=== PATIENT | female | born 1950 | race Caucasian/White ===

== ENCOUNTER 2016-11-19 08:34 | Inpatient (IN) | payer BC, OTHER ==
--- NOTE | 2016-10-24 10:17 | PAT Medication Instructions ---
Service Date Oct 24, 2016. Current Home Medication List Calcium Carbonate (Tums), 2 TAB PO PRN Cholecalciferol (Vitamin D3), 1 CAP PO QAM Ibuprofen (Advil), 400 MG PO BID PRN for RN Insulin Glargine (Lantus), 38 UNITS SC HS Levothyroxine Sodium (Synthroid), 50 MCG PO QAM Lisinopril (Zestril), 5 MG PO QAM Meclizine Hcl (Meclizine Hcl), 1 TAB PO PRN [Humalog], SC SLIDING SCALE Medication Instructions For Your Scheduled Surgery - Hold the following medications 7-10 days prior to surgery per surgeon instructions: Ibuprofen (Advil), 400 MG PO BID PRN for RN - Hold the following medications the morning of surgery: Humalog SC SLIDING SCALE Lisinopril (Zestril), 5 MG PO QAM Cholecalciferol (Vitamin D3), 1 CAP PO QAM. Calcium Carbonate (Tums), 2 TAB PO PRN - Take the following medications the morning of surgery with a sip of water: Levothyroxine Sodium (Synthroid), 50 MCG PO QAM Meclizine Hcl (Meclizine Hcl), 1 TAB PO PRN (takes occasionally- only take if needed) - Take the following medications as schedule Calcium Carbonate (Tums), 2 TAB PO PRNd the night before surgery: Insulin Glargine (Lantus), 38 UNITS SC HS If you have any questions please call us at [phone] or [phone] ( Jennifer) or [phone]
--- NOTE | 2016-10-24 10:54 | DIAGNOSTIC IMAGING REPORT ---
CHEST PREADMISSION(PA/LAT) CLINICAL HISTORY: Preoperative chest COMPARISON STUDY: No previous studies for comparison. FINDINGS: The cardiac and mediastinal contours are normal. There is no evidence of focal pulmonary consolidation. There is no evidence of failure. No pleural effusions are visualized.[There is minor linear scarring/atelectasis within the lingula. IMPRESSION: No active disease in the chest. Electronically signed by: Brenden Montez M.D. 10/24/2016 10:53 AM Dictated Date/Time: 10/24/2016 10:52 AM
[2016-10-24 11:18] LABS: URINE APPEARANCE CLEAR (CLEAR); URINE BILIRUBIN NEG (NEG); URINE COLOR YELLOW; URINE EPITHELIAL CELL AUTO 20-30 /lpf (0-5); URINE NITRITE NEG (NEG); URINE SPECIFIC GRAVITY 1.029 (1.000-1.030); UROBILINOGEN NEG (NEG)
[2016-10-24 11:20] LABS: MANUAL MICROSCOPIC REQUIRED? NO; REVIEW REQ? NO
[2016-10-24 11:22] LABS: BASO % 0.2 %; BASO ABS # 0.01 K/uL (0-0.2); COMPLETE YES; EOS % 2.7 %; HEMATOCRIT 39.3 % (37-47); IG% 0.2 %; LYMPH % 41.7 %; LYMPH ABS # 1.88 K/uL (1.2-3.4); MEAN CORPUSCULAR HGB CONC 34.1 g/dl (32-36); MEAN PLATELET VOLUME 9.9 fL (7.4-10.4); MONO % 5.3 %; NEUT % 49.9 %; PLATELET COUNT 189 K/uL (130-400); RED BLOOD COUNT 4.32 M/uL (4.2-5.4); WHITE BLOOD COUNT 4.51 K/uL (4.8-10.8)
[2016-10-24 12:05] LABS: BUN/CREATININE RATIO 23.9 (10-20); CALCIUM 8.6 mg/dl (8.5-10.1); CREATININE 0.74 mg/dl (0.60-1.20); POTASSIUM 3.9 mmol/L (3.5-5.1)
--- NOTE | 2016-11-15 09:13 | HISTORY & PHYSICAL EXAMINATION ---
DATE OF ADMISSION: 11/19/2016 HISTORY OF PRESENT ILLNESS: The patient presents to our office with a complaint of pain across the lower back, down the right leg, involving the buttock and thigh to the level of the knee. She states it is constant and worsening. She attempted physical therapy which was ineffective. She has trialed injections in the past without any long-term improvement. Denies bowel or bladder changes. Denies any numbness or paresthesias. PAST MEDICAL HISTORY: Significant for arthritis, spinal stenosis, thyroid disease, Lyme's disease, motion sickness, diabetes and fibromyalgia. PAST SURGICAL HISTORY: Significant for right knee surgery in 2005, right carpal tunnel release in 2007, back surgery in 2010. ALLERGIES: CAFFEINE CAUSES HEART PALPITATIONS. CURRENT MEDICATIONS: Include: 1. Levothyroxine 50 mcg a day. 2. Lisinopril 5 mg a day. 3. Humalog insulin 2 units per 15 carbs. 4. Lantus insulin 38 units daily. SOCIAL HISTORY: She is . Alcohol use is none. Tobacco use is none. FAMILY HISTORY: Significant for arthritis, cardiovascular disease, cancer, diabetes, hypertension, high cholesterol, and thyroid disease. REVIEW OF SYSTEMS: Significant for difficulty walking, ringing in ears, vertigo, muscle weakness, heartburn, heat intolerance, frequent urination. PHYSICAL EXAMINATION: VITAL SIGNS: She is 5-foot tall, 154 pounds. HEENT: Speech appropriate. CARDIOPULMONARY: No gross abnormalities. ABDOMEN: Soft, nontender. GENITOURINARY: Deferred. NEUROLOGIC: Cranial nerves II-XII grossly intact. MUSCULOSKELETAL: She moves slowly around the room. Strength is intact in bilateral lower extremities. No ankle clonus. Negative Babinski. ASSESSMENT: Severe spinal stenosis and spondylolisthesis of L3-L4. PLAN: At this point in time, we have reviewed surgical intervention as she has failed conservative treatment. Surgery would require lumbar decompression with instrumented fusion of L3-L4. Risks, benefits, pros, cons, and alternatives were outlined in detail. She would like to proceed with the above-mentioned surgical planning.
[2016-11-19] VITALS (8 sets, daily range): BP systolic 105–161; BP diastolic 58–75; PULSE 65–79; TEMP 36.4–36.8; O2SAT 97–100
[~2016-11-19] VITALS: Ht 154.9 cm; Wt 71.6 kg
--- NOTE | 2016-11-19 07:22 | History & Physical Bridge Note ---
H&P Re-Evaluation Bridge Note: I have examined the patient, reviewed the History & Physical and in the interval since the performance of the History & Physical I have noted the following changes of clinical significance: No changes noted
[~2016-11-19 08:34] MED LIST: ATROPINE SULFATE 0.1 MG/ML 5ML SYR IV PRN; CALC500C3 PO; CEFAZOLIN 1000MG/55 ML D5W IV SCH; CHOL2000 PO; EpHEDrine SULFATE INJ 50 MG/ML AMP IV PRN; FENTANYL CITRATE INJ 50 MCG/1 ML 2 ML VIAL IV PRN; HUMALOG SC; HYDROmorphone INJ 1 MG/ML SYR IV PRN; IBUP-1277 PO; INSDGI SC; LACTATED RINGER'S 1000ML 1,000 ML IV SCH; LEVO50TA PO; LISI-729 PO; MECL1TAB42 PO; ONDANSETRON INJ 2 MG/ML 2 ML VIAL IV PRN
[2016-11-19] MEDS ORDERED: FENTANYL CITRATE INJ 50 MCG/1 ML 2 ML VIAL ONE ×2 (09:29→10:32)
[2016-11-19] MEDS ORDERED: MIDAZOLAM HCL 1 MG/ML 2ML VIAL ONE (09:29)
[2016-11-19] MEDS ORDERED: SODIUM CHLORIDE 0.9% PF 50 ML VIAL ONE (09:55)
[2016-11-19] MEDS ORDERED: BUPIVACAINE/EPINEPHRINE 0.5% MPF 1:200,000 30 ML VIAL ONE (09:55)
[2016-11-19] MEDS ORDERED: BACITRACIN 50000 UNIT VIAL ONE (09:55)
[2016-11-19] MEDS ORDERED: HYDROmorphone INJ 2 MG/ML SYR/VIAL ONE ×2 (10:32→11:28)
[2016-11-19] MEDS ORDERED: LIDOCAINE HCL 2% 2 ML VIAL (20MG/ML) ONE (11:21)
[2016-11-19] MEDS ORDERED: ROCURONIUM BROMIDE 10 MG/ML 5 ML VIAL ONE (11:21)
[2016-11-19] MEDS ORDERED: DEXAMETHASONE SOD INJ 4 MG/ML VIAL ONE (11:21)
[2016-11-19] MEDS ORDERED: PROPOFOL IV EMULSION 10 MG/ML 20 ML VIAL IV ONE (11:21)
[2016-11-19] MEDS ORDERED: SODIUM CHLORIDE 0.9% 1000ML 1,000 ML IV SCH (11:26)
--- NOTE | 2016-11-19 11:26 | [facility] Operative Report ---
Operative Report Operative Date Nov 19, 2016. Pre-Operative Diagnosis severe spinal stenosis and spondylothesis L3-[address] Alan Murillo Family Support Specialist Surgeon(s) Rebekah Carl PA-C Estimated Blood Loss 250 ml Findings stenosis Specimens none per surgeon Dr. Javier Murillo I attest to the content of the Intraoperative Record and any orders documented therein. Any exceptions are noted below.
[2016-11-19] MEDS ORDERED: FLOSEAL HEMOSTATIC MATRIX 10ML TOP ONE (11:27)
[2016-11-19] MEDS ORDERED: DO NOT ADMINISTER FLU VACCINE PRN ×3 (11:30)
[2016-11-19] MEDS ORDERED: CALCIUM CARBONATE 500 MG CHEWABLE PO PRN (11:30)
[2016-11-19] MEDS ORDERED: hydrOXYzine HCL 25 MG TAB PO PRN (11:30)
[2016-11-19] MEDS ORDERED: SOD PHOSPHATE/SOD BIPHOSPHATE ENEMA 132 ML BTL PR PRN (11:30)
[2016-11-19] MEDS ORDERED: PROMETHAZINE HCL INJ 12.5 MG in SODIUM CHLORIDE 0.9% 50ML 50 ML IV PRN (11:30)
[2016-11-19] MEDS ORDERED: BISACODYL 10 MG SUPP PR PRN (11:30)
[2016-11-19] MEDS ORDERED: NALOXONE HCL 0.4 MG/1 ML VIAL/CARP IV PRN ×2 (11:30)
[2016-11-19] MEDS ORDERED: DO NOT ADMINISTER PNEUMOCOCCAL VACCINE PRN ×2 (11:30)
[2016-11-19] MEDS ORDERED: ALUMINUM/MAGNESIUM SUSP 30 ML UDC PO PRN (11:30)
[2016-11-19] MEDS ORDERED: LORAZEPAM 0.5 MG TAB PO PRN (11:30)
[2016-11-19] MEDS ORDERED: LORAZEPAM INJ 0.5 MG in SYRINGE 0.75 ML IV PRN (11:30)
[2016-11-19] MEDS ORDERED: MAGNESIUM HYDROXIDE SUSP 30 ML UDC PO PRN (11:30)
[2016-11-19] MEDS ORDERED: ACETAMINOPHEN IV 100 ML IV PRN (11:30)
[2016-11-19] MEDS ORDERED: METOCLOPRAMIDE HCL INJ 5 MG/ML 2 ML VIAL IV PRN (11:30)
[2016-11-19] MEDS ORDERED: FAMOTIDINE 20 MG TAB PO PRN (11:30)
[2016-11-19] MEDS ORDERED: ONDANSETRON INJ 2 MG/ML 2 ML VIAL ONE (11:31)
[2016-11-19] MEDS ORDERED: ESMOLOL HCL 10 MG/ML 10 ML VIAL ONE (11:31)
[2016-11-19] MEDS ORDERED: GLYCOPYRROLATE INJ 0.2 MG/ML VIAL ONE (11:31)
[2016-11-19] MEDS ORDERED: KETOROLAC TROMETHAMINE 30 MG/ML VIAL ONE (11:32)
[2016-11-19] MEDS ORDERED: NEOSTIGMINE METHYLSULFATE 1 MG/ML 10ML VIAL ONE (11:32)
--- NOTE | 2016-11-19 11:43 | DIAGNOSTIC IMAGING REPORT ---
LUMBAR SPINE, INTRAOPERATIVE FLUOROSCOPY HISTORY: L3-L5 decompression and fusion. FLUOROSCOPY TIME: 8 seconds. FINDINGS: Intraoperative fluoroscopy was provided for the lumbar spine. 2 fluoroscopic spot images were obtained. There is fusion hardware seen from L3 through L5. The hardware appears intact. IMPRESSION: Fluoroscopy provided for a L3-L5 decompression and fusion. Electronically signed by: Stanley Castillo M.D. 11/19/2016 11:42 AM Dictated Date/Time: 11/19/2016 11:42 AM
[2016-11-19] MEDS ORDERED: HYDROmorphone HCL 0.5MG/ML 50 ML CASSETTE ONE (11:45)
--- NOTE | 2016-11-19 12:17 | Anesthesiology Progress Note ---
Anesthesia Post Op Note Date & Time Nov 19, 2016 at 12:17 Vital Signs Pain Intensity: 5 Vital Signs Past 12 Hours Date Time Temp Pulse Resp B/P Pulse Ox O2 Delivery O2 Flow Rate FiO2 11/19/16 12:10 77 16 137/74 100 Nasal Cannula 3 11/19/16 12:00 82 16 143/84 100 Mask 10 11/19/16 11:50 82 16 145/72 100 Mask 10 11/19/16 11:44 36.6 83 16 169/80 96 Mask 10 11/19/16 08:56 36.5 73 20 161/75 98 Room Air Notes Mental Status: alert / awake / arousable, participated in evaluation Pt Amnestic to Procedure: Yes Nausea / Vomiting: adequately controlled Pain: adequately controlled Airway Patency, RR, SpO2: stable & adequate BP & HR: stable & adequate Hydration State: stable & adequate Anesthetic Complications: no major complications apparent
[2016-11-19] MEDS ORDERED: PHARMACY GLYCEMIC MGMT CONSULT PRN (12:31)
--- NOTE | 2016-11-19 12:49 | Pharmacy Progress Note ---
Glycemic Control Intl Consult Date of Service Nov 19, 2016. Scope Glycemic Pharmacist consulted by Dr Murillo on 11/19/16 for glycemic control and to write orders per [facility] inpatient glycemic control protocol Objective Weight (Kilograms): 71.60 Accuchecks BSG (last 24hrs): Test 11/19/16 08:56 11/19/16 11:57 Bedside Glucose 169 mg/dl (70-90) 227 mg/dl (70-90) Recent Pertinent Medications Outpatient Anti-diabetic Regimen: * Lantus 35 u HS * Humalog SS (2 unit per 15 g CHO per MD) * A1c unknown Risk Factors for Insulin Resistance: * Steroids * Recent Surgery * Diet Assessment & Plan ASSESSMENT: * 66 yo diabetic M admitted with spinal stenosis, POD#0 * A1c unknown- obtain tomorrow with AM labs to assess outpatient glycemic control * Per medication records, patient on basal/bolus regimen at home * My plan will be to split Lantus BID for ease of titration * Initiate 18 units as soon as patient admitted then continue BID dosing tonight * Initiate wt based Novolog, stress of 3 due to steroids * Add 00,04 checks for likely steroid-induced hyperglycemia * ADA & AACE recommend a goal blood sugar range 140-180 mg/dl for the majority of critically ill & non-critically ill patients. However, more stringent targets may be selected in individual cases. For optimal wound healing, tighten goal range to 110-140 mg/dL. PLAN FOR INPATIENT GLYCEMIC CONTROL: * Basal insulin with LANTUS 18 units SQ BID, first dose now * Correctional Insulin with NOVOLOG per scale ACHS + 00,04 checks * Goal Range: Low 110 mg/dL - High 140 mg/dL * Correction Factor: 25 mg/dL/unit * Nutritional / Prandial insulin per carb ratio of 1 unit per 8 grams CHO consumed * Add A1c to AM labs * Please note that the plan above was derived based on current level of insulin resistance and hospital stress. These recommendations are appropriate for inpatient admission only. Plan of care upon discharge will need to be reassessed to avoid potential outpatient hypo/hyperglycemia. Thank you.
[2016-11-19] MEDS ORDERED: INSULIN GLARGINE SOLOSTAR 100 UNITS/ML 3 ML PEN SC ONE (13:00)
[2016-11-19] MEDS ORDERED: GLUCOSE 40% GEL 15 GM TUBE PO PRN (13:00)
[2016-11-19] MEDS ORDERED: GLUCOSE 10 TABS/TUBE PO PRN (13:00)
[2016-11-19] MEDS ORDERED: GLUCAGON FOR INJ 1 MG VIAL SQ PRN (13:00)
[2016-11-19] MEDS ORDERED: DEXTROSE 50% 50 ML SYR IV PRN (13:00)
--- NOTE | 2016-11-19 13:33 | [facility] Post Operative Brief Note ---
Immediate Operative Summary Operative Date Nov 19, 2016. Pre-Operative Diagnosis severe spinal stenosis and spondylothesis L3-4 Post-Operative Diagnosis severe spinal stenosis and spondylothesis L3-4 Procedure(s) Performed L3-L4 Decompression, posterior instrumentation, posterolateral fusion, application of interbody cage, use of bone morphogenetic protein and Silvana allograft Surgeon Dr. Alan Murillo Subpoena Server Surgeon(s) Rebekah Carl PA-C Estimated Blood Loss 250 ml Findings stenosis/hnp Specimens none per surgeon Dr. Javier Murillo
[2016-11-19] MEDS: INSULIN ASPART 100 UNITS/ML 3 ML PEN SC SCH ×3 (13:46→21:18)
[2016-11-19] MEDS: LACTATED RINGER'S 1000ML 1,000 ML IV SCH ×2 (13:48→18:21)
--- NOTE | 2016-11-19 14:40 | OPERATIVE REPORT ---
DATE OF OPERATION: 11/19/2016 PREOPERATIVE DIAGNOSIS: Spinal stenosis, L3-L4. POSTOPERATIVE DIAGNOSIS: Same. PROCEDURES PERFORMED: 1. Lumbar decompression, medial facetectomy, and foraminotomy, L3-L4. 2. Posterior spinal fusion, L3-L4. 3. Placement of posterior instrumentation using Orthros rods and screws, L3-L4. 4. Interbody fusion, L3-L4. 5. Placement of PEEK cage 12 x 22 mm at L3-L4. 6. Placement of locally harvested morselized autograft in the posterior gutters. 7. Placement of Infuse collagen sponge combined with Mastergraft in the posterior gutters and Silvana bone graft in the interbody space. SURGEON: Dr. Alan Murillo. PERINATAL INSTRUCTOR: Rebekah Carl PA-C. Due to the complex nature of the procedure, the entire surgery was performed with the behavioral health assistant of Rebekah Carl PA-C. The assistant education director, under direct supervision, was involved in the actual performance of all aspects of the surgical procedure including hemostasis, tissue retraction and incision, instrument management, patient positioning, and wound closure. ANESTHESIA: General. DISPOSITION: The patient awakened and taken to PACU in stable condition. HISTORY OF PATIENT'S PROBLEMS: This is a 66-year-old female that presents with above-mentioned diagnosis. After failing an extensive course of nonoperative care, she elected to undergo the above-mentioned procedures. Risks, benefits, pros, cons, and alternatives were outlined in detail preoperatively. DESCRIPTION OF PROCEDURE: The patient was met with preoperatively, case discussed and all questions were addressed. At that point, the patient was taken back to operative suite and after undergoing successful general intubation by the department of anesthesia, she was placed in prone position on the Chris table atop Colin frame. All bony prominences were well padded and the eyes were inspected to ensure there was no external pressure placed upon them. At this point, lumbar spine was prepped and draped in the normal sterile fashion. Sharp dissection with the assistance of Bovie cautery was performed down to and exposing the lamina and transverse processes of L3-L4. From a caudal to cephalad fashion, a complete laminectomy of L3 was performed addressing severe central lateral recess and foraminal disease. After this was complete, pedicle screws were then placed in L3 and L4 bilaterally with assistance of fluoroscopy and appropriate size parvin provisionally placed. Through a transforaminal approach on the right, a complete diskectomy of L3-L4 was performed, endplates curetted to subcortical bleeding bone and a 12 x 22 mm PEEK cage filled with Silvana bone grafting tapped into position. Rods were then compressed, locked into final position bilaterally and transverse processes of L3 and L4 burred to subcortical bleeding bone. Infuse collagen sponge combined with Mastergraft and locally harvested morselized autograft was placed in the posterior gutters. A 7 flat JIMBO drain was inserted. Incision was closed with 1-0 Vicryl in the fascia, 2-0 Vicryl subcutaneously, and 4-0 Monocryl for final skin closure. Steri-Strips and sterile dressing placed. The patient was awakened and taken to PACU in stable condition. I attest to the content of the Intraoperative Record and any orders documented therein. Any exceptio ns are noted below.
[2016-11-19] MEDS: HYDROmorphone HCL 0.5MG/ML 50 ML CASSETTE IV PRN ×2 (15:04→23:01)
[2016-11-19] MEDS ORDERED: RXC5 PO (16:43)
--- NOTE | 2016-11-19 16:43 | Discharge Instructions ---
Discharge Instructions Date of Service Nov 19, 2016. Admission Reason for Admission: Spinal Stenosis Discharge Discharge Diagnosis / Problem: stenosis Discharge Goals Goal(s): Improve function Activity Recommendations Activity Limitations: per Instructions/Follow-up section . Instructions / Follow-Up Instructions / Follow-Up ACTIVITY RECOMMENDATIONS: SELF CARE INSTRUCTIONS AFTER THORACIC/LUMBAR FUSIONS 1. You may walk to your tolerance. It is good exercise for your legs and back. Expect some back and intermittent leg aches and pains. 2. You may perform "counter-top" level activities (make a sandwich, lizabeth with a project, etc.). 3. No bending or lifting of more than 10 pounds or back twisting of any nature (roll like a log when turning in bed). 4. You may ride in a car for 20-30 minutes at a time. No driving until after your first visit with your doctor. 5. Frequent changes of position and restricting sitting to 30 minutes at a time will help limit the amount of back spasms and stiffness you may experience. 6. You may discontinue the use of ambulatory aids (cane, crutches, etc.) once your strength and confidence allow. 7. You may equipment inspector the shower and let water strike your incision when you arrive home at least once daily. Do not take a tub bath, sit in a hot tub or go into a swimming pool until after your first recheck in the office. SPECIAL CARE INSTRUCTIONS: VERY IMPORTANT TO READ AND REVIEW A. Your surgical incision has been closed with a cosmetic suture under the skin that will dissolve in about 6 weeks. In 14 days, you can use a pair of clean scissors and cut the suture that is left outside of the skin at the ends of your incision. 1. The small skin tapes can be removed 7 days after surgery if they have not fallen off by that point. 2. You may keep the wound open to air as much as possible to promote healing after post-op day number 5 unless told otherwise by your doctor. 3. If you think the wound looks like it is becoming infected (redness or worsening drainage) and/or you are experiencing fever, chill or worsening back pain and muscle spasms, contact the office so that we may evaluate you as soon as possible. B. Complications are uncommon, but please contact us if you have any signs or symptoms of: 1. wound infection (fever higher than 102.5 degrees F, redness, separation of wound, drainage, or increasing pain from the incision) 2. blood clots in legs (pain, swelling, redness and warmth in legs) 3. urinary tract infection (fever higher than 102.5 degrees F, burning upon urination or increased frequency of urination) 4. nerve problems (inability to walk on your toes or heels, numbness, loss of bowel or bladder control) 5. any other symptoms that concern you C. Please call the office at if you have any concerns or questions about your operation or recovery. D. No smoking! Smoking drastically decreases the chance of a solid fusion. E. Do not take any anti-inflammatory medications (Indocin, Advil, Motrin, Aspirin, Naprosyn, etc.) as these may inhibit the chance of a solid fusion. Tylenol is okay to take for pain. MANAGING PAIN AFTER SPINAL SURGERY 1. Narcotic medication is intended for short-term use and will be provided for surgical pain. Surgical pain usually lasts for a period of 4-6 weeks. Narcotic medication includes Percocet, Vicodin, Darvocet, Tylenol #3 or Lortab. 2. Longer-term pain is more appropriately treated with non-narcotic medication such as Tylenol ES. 3. Muscle spasm is not appropriately treated with narcotics. Muscle relaxers such as Soma, Flexeril or Skelaxin can be used along with Tylenol ES. 4. Remember that we all live with some "aches and pains". This is not unusual or uncommon after an injury or as we get older. a. Back pain is expected and may include muscle spasms for 4 to 6 weeks after surgery. The pain should gradually improve. If the pain worsens for no apparent reason, please contact the office. b. Intermittent leg pain may also be experienced and should not be concerned about unless it worsens for no apparent reason. If so, please contact the office. 5. We will provide appropriate medication within the normal guidelines of their prescribed use. We will also be very cautious and aware of potential abuse and extended duration of patients' medication needs. a. Pain medications are for your comfort and to assist with sleep and rest so that the tissue can heal. They are not provided in order to return to normal activity and should not be used through the day. To do so or worsening pain at night can result from ongoing tissue damage and development of tolerance to the prescribed medicine. 6. Please allow 2-3 days to process refills. Prescriptions will not be mailed but must be picked up at the office. FOLLOW UP VISIT: Keep your scheduled follow-up appointment. Any questions, please call the office at . Current Hospital Diet Patient's current hospital diet: Diabetes Type 2 Diet Discharge Diet Recommended Diet: Regular Diet Procedures Procedures Performed: L3-L4 Decompression, posterior instrumentation, posterolateral fusion, application of interbody cage, use of bone morphogenetic protein and Silvana allograft Pending Studies Studies pending at discharge: no Medical Emergencies . Who to Call and When: Medical Emergencies: If at any time you feel your situation is an emergency, please call 911 immediately. . Non-Emergent Contact Non-Emergency issues call your: Primary Care Provider . "Provider Documentation" section prepared by Alan Murillo. VTE Core Measure Inpt VTE Proph given/why not?: Stefani Monsalve, JACQUELINE's
[2016-11-19] MEDS: CEFAZOLIN IV 1,000 MG in DEXTROSE 5% 50ML 50 ML IV SCH (18:21)
[2016-11-19] MEDS: DEXAMETHASONE INJ 6 MG in SYRINGE 0 ML IV SCH (18:35)
[2016-11-19] MEDS ORDERED: NURSING VERBAL MED ORDER ONE (19:30)
[2016-11-19] MEDS ORDERED: MECLIZINE HCL 25 MG TAB PO PRN (19:45)
[2016-11-19] MEDS ORDERED: INSULIN GLARGINE SOLOSTAR 100 UNITS/ML 3 ML PEN SC SCH (21:00)
[2016-11-19] MEDS: DOCUSATE SODIUM/SENNA 50/8.6MG TAB PO SCH (21:15)
[2016-11-20] MEDS: INSULIN ASPART 100 UNITS/ML 3 ML PEN SC SCH ×7 (00:04→23:50)
[2016-11-20] MEDS: LACTATED RINGER'S 1000ML 1,000 ML IV SCH ×2 (00:05→07:26)
[2016-11-20] MEDS: CEFAZOLIN IV 1,000 MG in DEXTROSE 5% 50ML 50 ML IV SCH (01:58)
[2016-11-20] MEDS: DEXAMETHASONE INJ 6 MG in SYRINGE 0 ML IV SCH ×2 (01:58→10:59)
[2016-11-20 03:45] VITALS: BP 122/72; PULSE 81; TEMP 36.5; O2SAT 98
[2016-11-20] MEDS ORDERED: HYDROmorphone INJ 1 MG/ML SYR IV PRN (06:00)
[2016-11-20] MEDS ORDERED: DC PCA SCH (06:00)
[2016-11-20] MEDS ORDERED: HYDROmorphone INJ 0.5 MG/0.5 ML SYR IV PRN (06:00)
[2016-11-20 06:10] VITALS: O2SAT 97
[2016-11-20] MEDS: LEVOTHYROXINE 50 MCG TAB PO SCH (06:13)
[2016-11-20 06:33] LABS: COMPLETE YES; HEMATOCRIT 33.1 % (37-47); IG% 0.2 %; LYMPH % 8.7 %; LYMPH ABS # 0.87 K/uL (1.2-3.4); MEAN CORPUSCULAR HEMOGLOBIN 31.7 pg (25-34); MEAN CORPUSCULAR HGB CONC 35.6 g/dl (32-36); MEAN PLATELET VOLUME 9.4 fL (7.4-10.4); MONO % 1.5 %; NEUT % 89.6 %; PLATELET COUNT 188 K/uL (130-400); RED BLOOD COUNT 3.72 M/uL (4.2-5.4); WHITE BLOOD COUNT 9.96 K/uL (4.8-10.8)
[2016-11-20 07:03] LABS: BUN/CREATININE RATIO 20.8 (10-20); CALCIUM 8.3 mg/dl (8.5-10.1); CREATININE 0.86 mg/dl (0.60-1.20)
[2016-11-20 07:04] VITALS: BP 134/60; PULSE 72; TEMP 36.5; O2SAT 96
--- NOTE | 2016-11-20 07:52 | Anesthesiology Progress Note ---
Anesthesia Post Op Note Date & Time Nov 20, 2016 at 07:52 Vital Signs Pain Intensity: 5.0 Vital Signs Past 12 Hours Date Time Temp Pulse Resp B/P Pulse Ox O2 Delivery O2 Flow Rate FiO2 11/20/16 07:38 Room Air 11/20/16 07:04 36.5 72 16 134/60 96 Room Air 11/20/16 06:10 97 Room Air 11/20/16 03:45 36.5 81 16 122/72 98 Nasal Cannula 2.0 11/19/16 23:30 36.4 72 16 138/75 97 Nasal Cannula 2.0 11/19/16 23:30 Nasal Cannula 2.0 Notes Mental Status: alert / awake / arousable, participated in evaluation Pt Amnestic to Procedure: Yes Nausea / Vomiting: adequately controlled Pain: adequately controlled Airway Patency, RR, SpO2: stable & adequate BP & HR: stable & adequate Hydration State: stable & adequate Anesthetic Complications: no major complications apparent OOB to bathroom
[2016-11-20] MEDS ORDERED: INSULIN GLARGINE SOLOSTAR 100 UNITS/ML 3 ML PEN SC SCH ×2 (08:00→21:00)
[2016-11-20] MEDS: LISINOPRIL 5 MG TAB PO SCH (08:45)
[2016-11-20] MEDS ORDERED: NURSING VERBAL MED ORDER ONE ×3 (08:45→09:15)
[2016-11-20] MEDS: OXYCODONE HCL IR 5 MG TAB (IMMEDIATE RELEASE) PO PRN ×3 (08:59→19:47)
[2016-11-20 09:06] LABS: ESTIMATED AVERAGE GLUCOSE 160 mg/dl; HA1C FLAG Normal (Normal)
--- NOTE | 2016-11-20 09:12 | Pharmacy Progress Note ---
Glycemic Control: Progress Nt Date of Service Nov 20, 2016. Scope Glycemic Pharmacist consulted by Dr Murillo on 11/19/16 for glycemic control and to write orders per [facility] inpatient glycemic control protocol. Objective Accuchecks BSG (last 24hrs): Test 11/19/16 11:57 11/19/16 16:50 11/19/16 21:03 11/20/16 00:01 Bedside Glucose 227 mg/dl (70-90) 244 mg/dl (70-90) 256 mg/dl (70-90) 238 mg/dl (70-90) Test 11/20/16 04:04 11/20/16 06:15 11/20/16 08:04 Bedside Glucose 242 mg/dl (70-90) 222 mg/dl (70-90) Random Glucose 209 mg/dl (70-99) Laboratory Data (last 24hrs) Test 11/20/16 06:15 Anion Gap 6.0 mmol/L BUN/Creatinine Ratio 20.8 Blood Urea Nitrogen 18 mg/dl Creatinine 0.86 mg/dl Potassium Level 4.0 mmol/L Sodium Level 141 mmol/L White Blood Count 9.96 K/uL Red Blood Count 3.72 M/uL Hemoglobin 11.8 g/dL Hematocrit 33.1 % Mean Corpuscular Volume 89.0 fL Mean Corpuscular Hemoglobin 31.7 pg Mean Corpuscular Hemoglobin Concent 35.6 g/dl Platelet Count 188 K/uL Mean Platelet Volume 9.4 fL Neutrophils (%) (Auto) 89.6 % Lymphocytes (%) (Auto) 8.7 % Monocytes (%) (Auto) 1.5 % Eosinophils (%) (Auto) 0.0 % Basophils (%) (Auto) 0.0 % Neutrophils # (Auto) 8.92 K/uL Lymphocytes # (Auto) 0.87 K/uL Monocytes # (Auto) 0.15 K/uL Eosinophils # (Auto) 0.00 K/uL Basophils # (Auto) 0.00 K/uL HbA1c: Item Value Date Time Hemoglobin A1c 7.2 % H 11/20/16 0615 Estimated Average Glucose 160 mg/dl 11/20/16 0615 Recent Pertinent Medications Outpatient Anti-diabetic Regimen: * Lantus 35 u HS * Humalog SS (2 unit per 15 g CHO per MD) Risk Factors for Insulin Resistance: * Steroids * Recent Surgery * Diet Assessment & Plan ASSESSMENT: 11/19/16 * 66 yo diabetic M admitted with spinal stenosis, POD#0 * A1c unknown- obtain tomorrow with AM labs to assess outpatient glycemic control * Per medication records, patient on basal/bolus regimen at home * My plan will be to split Lantus BID for ease of titration * Initiate 18 units as soon as patient admitted then continue BID dosing tonight * Initiate wt based Novolog, stress of 3 due to steroids * Add 00,04 checks for likely steroid-induced hyperglycemia * ADA & AACE recommend a goal blood sugar range 140-180 mg/dl for the majority of critically ill & non-critically ill patients. However, more stringent targets may be selected in individual cases. For optimal wound healing, tighten goal range to 110-140 mg/dL. 11/20/16 * A1c 7.2% reveals adequate glycemic control as outpatient, given age and comorbidities * BSGs elevated over the past 24 hours due to steroid-induced hyperglycemia * Last dose of dexamethasone 6 mg IV @1000 this AM * Tighten Novolog with breakfast as BSGs remain >200 mg/dL * Consider loosening back once effects of steroids dissipate (likely tomorrow) * Remove additional accuchek as steroids discontinued * Start to transition patient back to Lantus HS dosing as discharge is likely in 24-48 hours * A total of Lantus 36 units given yesterday * Give Lantus 10 units X 1 this AM * Initiate Lantus 30 units HS tonight (for a total of 40 units basal) PLAN FOR INPATIENT GLYCEMIC CONTROL: * Basal insulin with LANTUS 10 units X 1 this AM + 30 units HS * Correctional Insulin with NOVOLOG per scale ACHS * Goal Range: Low 110 mg/dL - High 140 mg/dL * Correction Factor: 20 mg/dL/unit * Nutritional / Prandial insulin per carb ratio of 1 unit per 7 grams CHO consumed * Add A1c to D/C instructions * Please note that the plan above was derived based on current level of insulin resistance and hospital stress. These recommendations are appropriate for inpatient admission only. Plan of care upon discharge will need to be reassessed to avoid potential outpatient hypo/hyperglycemia. Thank you.
[2016-11-20 11:53] VITALS: BP 114/63; PULSE 75; TEMP 36.6; O2SAT 96
--- NOTE | 2016-11-20 12:49 | PROGRESS NOTE ---
DATE: 11/20/2016 DATE: 11/20/2016. SUBJECTIVE: Postop day 1. Back pain controlled. Leg pain improving. Vital signs stable. T-max 36.6. JIMBO drained 80 mL. Hematocrit this a.m. is 33.1. OBJECTIVE: On exam she has good strength to testing. Appears relatively comfortable. ASSESSMENT: Status post lumbar decompression and fusion. PLAN: At this time, will continue physical therapy, consider consultation with OT for possible rehab placement versus home health.
[2016-11-20 15:25] VITALS: BP 151/66; PULSE 88; TEMP 36.8; O2SAT 97
[2016-11-20] MEDS ORDERED: INSULIN GLARGINE SOLOSTAR 100 UNITS/ML 3 ML PEN SC ONE (21:15)
[2016-11-20] MEDS: DOCUSATE SODIUM/SENNA 50/8.6MG TAB PO SCH (21:16)
[2016-11-20] MEDS ORDERED: INSULIN REGULAR 4 UNITS in SYRINGE 3.96 ML IV SCH (21:30)
[2016-11-20 23:40] VITALS: BP 108/61; PULSE 78; TEMP 36.7; O2SAT 97
[2016-11-21] MEDS: OXYCODONE HCL IR 5 MG TAB (IMMEDIATE RELEASE) PO PRN ×5 (03:01→21:10)
[2016-11-21] MEDS: INSULIN ASPART 100 UNITS/ML 3 ML PEN SC SCH ×5 (03:58→21:01)
[2016-11-21] MEDS: POLYETHYLENE (MIRALAX) 17 GM PACK PO SCH ×4 (05:23→23:25)
[2016-11-21] MEDS: LEVOTHYROXINE 50 MCG TAB PO SCH (05:23)
[2016-11-21 07:04] VITALS: BP 147/73; PULSE 71; TEMP 36.4; O2SAT 98
[2016-11-21] MEDS: LISINOPRIL 5 MG TAB PO SCH (07:42)
[2016-11-21 07:49] VITALS: BP 140/64; PULSE 72; TEMP 36.6; O2SAT 100
[2016-11-21 09:37] VITALS: O2SAT 100
--- NOTE | 2016-11-21 11:23 | Pharmacy Progress Note ---
Glycemic Control: Progress Nt Date of Service Nov 21, 2016. Scope Glycemic Pharmacist consulted by Dr Murillo on 11/19/16 for glycemic control and to write orders per [facility] inpatient glycemic control protocol. Objective Accuchecks BSG (last 24hrs): Test 11/20/16 12:10 11/20/16 16:55 11/20/16 20:41 11/20/16 23:46 Bedside Glucose 217 mg/dl (70-90) 232 mg/dl (70-90) 341 mg/dl (70-90) 231 mg/dl (70-90) Test 11/21/16 03:54 11/21/16 06:55 Bedside Glucose 151 mg/dl (70-90) 137 mg/dl (70-90) HbA1c: Test 11/20/16 06:15 Hemoglobin A1c 7.2 % (4.5-5.6) H Recent Pertinent Medications Outpatient Anti-diabetic Regimen: * Lantus 38 units SQ HS * Humalog SSI * CR = 7.5 The patient is currently receiving: * Basal insulin: Lantus 38 units every 24 hours given at bedtime ( did receive additional 10 units in AM for severe steroid induced hyperglycemia) * Correctional Insulin: Novolog Correction per scale ACHS Goal Range: Low 110 mg/dL - High 140 mg/dL Correction Factor: 15 mg/dL/unit * Prandial insulin: Per carb ratio of 1 unit per 5 grams CHO consumed * Oral Agents: Risk Factors for Insulin Resistance: * Steroids * Recent Surgery * Diet Assessment & Plan ASSESSMENT: * 66yo T2DM female with adequate outpatient control on current regimen per recent A1c * Seems reasonable for patient to resume previous outpatient regimen at the time of discharge * Pt has been requiring significantly more insulin in house as compared to outpatient dosing d/t steroid induced hyperglycemia * Last dose of DXM was yesterday AM --> anticipate BSGs to improve as hyperglycemic effects wear off * Regimen will need empirically reduced now that steroids d/c to prevent hypo * ADA & AACE recommend a goal blood sugar range 140-180 mg/dl for the majority of critically ill & non-critically ill patients. However, more stringent targets may be selected in individual cases. Will utilize more stringent goal range of 110-140mg/dl for a well controlled diabetic and to facilitate healing post-operatively. PLAN FOR INPATIENT GLYCEMIC CONTROL: * Continue Basal insulin with LANTUS 38 units SQ HS * Loosen/decrease NOVOLOG per scale ACHS or Q6hrs while NPO * Goal Range: Low 110 mg/dL - High 140 mg/dL * Correction Factor: 20 mg/dL/unit * Nutritional / Prandial insulin per carb ratio of 1 unit per 6 grams CHO consumed * Please note that the plan above was derived based on current level of insulin resistance and hospital stress. These recommendations are appropriate for inpatient admission only. Plan of care upon discharge will need to be reassessed to avoid potential outpatient hypo/hyperglycemia. Thank you.
[2016-11-21 11:33] VITALS: BP 158/66; PULSE 70; TEMP 36.8; O2SAT 98
[2016-11-21] MEDS: ACETAMINOPHEN 500 MG TAB PO PRN (12:46)
[2016-11-21 12:54] VITALS: Ht 154.9 cm; Wt 71.6 kg
--- NOTE | 2016-11-21 13:57 | PROGRESS NOTE ---
DATE: 11/21/2016 DATE: 11/21/2016. SUBJECTIVE: Postop day 2. Back pain controlled. Leg pain improved. Vital signs stable. T-max 36.8. JIMBO drained 30 mL. OBJECTIVE: On exam the patient has good strength to testing, appears comfortable. ASSESSMENT: Status post lumbar decompression and fusion. PLAN: At this time, will continue to advance her bowel regimen, physical therapy and anticipate discharge home tomorrow.
[2016-11-21 15:22] VITALS: BP 108/58; PULSE 82; TEMP 36.9; O2SAT 97
[2016-11-21] MEDS: DOCUSATE SODIUM/SENNA 50/8.6MG TAB PO SCH (20:51)
[2016-11-21] MEDS: INSULIN GLARGINE SOLOSTAR 100 UNITS/ML 3 ML PEN SC SCH (21:02)
[2016-11-21 23:00] VITALS: BP 126/56; PULSE 84; TEMP 36.9; O2SAT 96
[2016-11-22] MEDS: OXYCODONE HCL IR 5 MG TAB (IMMEDIATE RELEASE) PO PRN ×3 (01:15→20:50)
[2016-11-22] MEDS: POLYETHYLENE (MIRALAX) 17 GM PACK PO SCH ×3 (06:10→18:00)
[2016-11-22] MEDS: LEVOTHYROXINE 50 MCG TAB PO SCH (06:10)
[2016-11-22] MEDS: ONDANSETRON INJ 2 MG/ML 2 ML VIAL IV PRN ×2 (06:10→12:38)
[2016-11-22 06:59] VITALS: BP 139/67; PULSE 76; TEMP 36.9; O2SAT 96
[2016-11-22] MEDS: LISINOPRIL 5 MG TAB PO SCH (08:45)
[2016-11-22] MEDS: INSULIN ASPART 100 UNITS/ML 3 ML PEN SC SCH ×4 (08:51→21:00)
[2016-11-22] MEDS: ACETAMINOPHEN 500 MG TAB PO PRN (08:52)
[2016-11-22] MEDS ORDERED: NURSING VERBAL MED ORDER ONE (13:15)
[2016-11-22] MEDS ORDERED: TRAMADOL HCL 50 MG TAB PO PRN (13:30)
--- NOTE | 2016-11-22 13:36 | PROGRESS NOTE ---
DATE: 11/22/2016 SUBJECTIVE: Postop day #3. Back pain controlled. Leg pain improved. Vital signs stable. T-max 36.9. JIMBO drained 40 mL today. No bowel movement as of yet. PHYSICAL EXAMINATION: She has good strength to testing, complaining of some GERD which she has had for many years. PLAN: At this time, we will continue physical therapy, monitor JIMBO drain and advance her bowel regimen. We will plan for discharge home tomorrow.
[2016-11-22 14:58] VITALS: BP 115/58; PULSE 79; TEMP 36.8; O2SAT 95
[2016-11-22 20:36] VITALS: BP 115/58; PULSE 79; TEMP 36.8; O2SAT 95
[2016-11-22] MEDS: INSULIN GLARGINE SOLOSTAR 100 UNITS/ML 3 ML PEN SC SCH (21:00)
[2016-11-22] MEDS: DOCUSATE SODIUM/SENNA 50/8.6MG TAB PO SCH (21:00)
--- NOTE | 2016-11-23 13:08 | DISCHARGE SUMMARY ---
PRINCIPAL DIAGNOSIS: Spinal stenosis. HOSPITAL COURSE FOLLOWS: On 11/19/2016 patient underwent lumbar decompression and fusion, tolerated this well and taken to the orthopedic floor postoperatively. Postop day #1, she was up and ambulatory. Leg symptoms markedly improved and progressed throughout the next day. JIMBO drain decreased appropriately. Bowels were working well. Subsequently discharged home. Discharge orders and instructions can be found on the chart for further review.
== END 2016-11-22 21:15 | disposition home or self-care (01) | DRG 460 ==
LOC: ENRESERVDT → ENRESERVTM → C.ACU 08:34 → C.3E 09:25
PROVIDERS: ADMIT Orthopaedic Surgery Orthopaedic Surgery of the Spine; ATTEND Orthopaedic Surgery Orthopaedic Surgery of the Spine
PROC: 0SG00AJ Fusion of Lumbar Vertebral Joint with Interbody Fusion Device, Posterior Approach, Anterior Column, Open Approach (ICD-10-PCS; principal; 2016-11-19 10:45)
PROC: 0SG0071 Fusion of Lumbar Vertebral Joint with Autologous Tissue Substitute, Posterior Approach, Posterior Column, Open Approach (ICD-10-PCS; principal; 2016-11-19 10:45)
PROC: 0ST20ZZ Resection of Lumbar Vertebral Disc, Open Approach (ICD-10-PCS; principal; 2016-11-19 10:45)
PROC: 3E0U0GB Introduction of Recombinant Bone Morphogenetic Protein into Joints, Open Approach (ICD-10-PCS; principal; 2016-11-19 10:45)
DX: M48.06 Spinal stenosis, lumbar region (principal); A69.23 Arthritis due to Lyme disease; B02.29 Other postherpetic nervous system involvement; M43.16 Spondylolisthesis, lumbar region; E11.42 Type 2 diabetes mellitus with diabetic polyneuropathy; E07.9 Disorder of thyroid, unspecified; I10 Essential (primary) hypertension; K21.9 Gastro-esophageal reflux disease without esophagitis; M19.90 Unspecified osteoarthritis, unspecified site; G62.9 Polyneuropathy, unspecified; M79.7 Fibromyalgia; E66.9 Obesity, unspecified; Z68.30 Body mass index [BMI] 30.0-30.9, adult; Z79.4 Long term (current) use of insulin; Z79.899 Other long term (current) drug therapy

== ENCOUNTER 2021-01-02 08:04 | Inpatient (IN) ==
--- NOTE | 2020-12-07 14:48 | PAT Medication Instructions ---
Medication Instructions Date of Service December 07, 2020 Home Medications acetaminophen [Tylenol Extra Strength] 500 mg PO Q6H PRN aspirin [Aspir-81] 81 mg PO QAM calcium carbonate [Tums] 200 mg PO BID PRN cholecalciferol (vitamin D3) [Vitamin D3] 50 mcg PO QAM insulin aspart U-100 [Novolog U-100 Insulin aspart] 1 sliding scale dose SUBCUT TIDM insulin glargine [Lantus U-100 Insulin] 42 unit SUBCUT HS levothyroxine 50 mcg PO QAM lisinopril 5 mg PO QAM meclizine 12.5 - 25 mg PO DAILY PRN metoprolol tartrate 25 mg PO BID rosuvastatin 10 mg PO QPM ticagrelor [Brilinta] 90 mg PO BID ASK your prescriber and surgeon aspirin [Aspir-81] 81 mg PO QAM ticagrelor [Brilinta] 90 mg PO BID DO NOT take the morning of surgery calcium carbonate [Tums] 200 mg PO BID PRN cholecalciferol (vitamin D3) [Vitamin D3] 50 mcg PO QAM insulin aspart U-100 [Novolog U-100 Insulin aspart] 1 sliding scale dose SUBCUT TIDM lisinopril 5 mg PO QAM Take morning of surgery With a small sip of water, OTHERWISE NOTHING TO EAT OR DRINK AFTER MIDNIGHT: acetaminophen [Tylenol Extra Strength] 500 mg PO Q6H PRN (if needed, may be taken up to four hours before surgery) levothyroxine 50 mcg PO QAM meclizine 12.5 - 25 mg PO DAILY PRN (if needed) metoprolol tartrate 25 mg PO BID Take evening before surgery acetaminophen [Tylenol Extra Strength] 500 mg PO Q6H PRN (if needed) calcium carbonate [Tums] 200 mg PO BID PRN (if needed) insulin aspart U-100 [Novolog U-100 Insulin aspart] 1 sliding scale dose SUBCUT TIDM insulin glargine [Lantus U-100 Insulin] 42 unit SUBCUT HS meclizine 12.5 - 25 mg PO DAILY PRN (if needed) metoprolol tartrate 25 mg PO BID rosuvastatin 10 mg PO QPM Other Notes If you have any questions please call us at [phone] or [phone] or [phone] or [phone]
--- NOTE | 2020-12-12 11:22 | Anesthesiology Consultation ---
Date of Service December 12, 2020 Assessment & Plan (1) Encounter for pre-operative examination: COVID Status: As of 12/12 assessment, patient denies travel to endemic area, known exposure/sick contacts, or symptoms of COVID19. Patient instructed that they and their household members must follow strict social distancing guidelines, wear a mask in public and avoid travel/events/gatherings for 14 days prior to surgery. Preoperative COVID19 testing to be completed prior to surgery per surgeon's arrangements (pt aware). Patient made aware to self-isolate as much as possible between COVID testing and surgery. Pt has been fully vaccinated for COVID. Cardiology clearance 11/16/2020: "Symptoms have improved with intervention. She can hold the Brillinta for 3 days after 6 months of treatment which will be June 09. She must continue on aspirin 81 mg daily. Would resume Brilinta as early as possible following surgery. She is considered low risk for planned procedure." Surgeon's office was flagged re: cardiology recommendations for Brillinta. No contraindication from anesthesia standpoint, but this medication is normally held for at least 5 days to decrease bleeding risk. Dr. Murillo's office advised to f/u with cash van salesperson if longer hold desired. BSG AM DOS Chart Review Chart Review: Acceptable Risk for Surgery and Patient seen in Pre Admission Padma carmen Teaching & Discussion Instructed NPO after midnight before surgery, except medications with 15 cc of water. Medication instructions provided according to the PAT guidelines. History Surgery Operation Date: 01/02/21 07:45 Proposed Procedures p Posterior Fusion Instrumentation - Alan Murillo DO Height/Weight Height: 5 ft Weight: 72.6 kg Allergies Allergy/AdvReac Type Severity Reaction Status Date / Time caffeine Allergy Unknown HEART RACES Verified 11/30/20 08:49 cat dander Allergy Unknown CAT/DOG Verified 11/30/20 08:49 DANDER-THROATS CLOSES No Known Drug Allergies Allergy Unknown NONE Verified 11/30/20 08:49 Medications Home Medications Medication Instructions Recorded Confirmed Last Taken acetaminophen [Tylenol Extra 500 mg PO Q6H PRN 11/30/20 11/30/20 Unknown Strength] aspirin [Aspir-81] 81 mg PO QAM 11/30/20 11/30/20 Unknown calcium carbonate [Tums] 200 mg PO BID PRN 11/30/20 11/30/20 Unknown cholecalciferol (vitamin D3) 50 mcg PO QAM 11/30/20 11/30/20 Unknown [Vitamin D3] insulin aspart U-100 [Novolog 1 sliding scale dose SUBCUT TIDM 11/30/20 11/30/20 Unknown U-100 Insulin aspart] insulin glargine [Lantus U-100 42 unit SUBCUT HS 11/30/20 11/30/20 Unknown Insulin] levothyroxine 50 mcg PO QAM 11/30/20 11/30/20 Unknown lisinopril 5 mg PO QAM 11/30/20 11/30/20 Unknown meclizine 12.5 - 25 mg PO DAILY PRN 11/30/20 11/30/20 Unknown metoprolol tartrate 25 mg PO BID 11/30/20 11/30/20 Unknown rosuvastatin 10 mg PO QPM 11/30/20 11/30/20 Unknown ticagrelor [Brilinta] 90 mg PO BID 11/30/20 11/30/20 Unknown Past Medical History Medical History (Updated 12/12/20 @ 15:51 by Rick Smith) Anxiety CAD (coronary artery disease) 3 stents to RCA 06/09/20 F/U DR KENDRA MEYERS Chronic back pain Diabetes mellitus, type 2 well controlled. Hypothyroidism Neuropathy LEFT FOOT On anticoagulant therapy Osteoarthritis Exercise / Class Metabolic Activity II 4-5 Yardwork/Stairs/Walk up hill (Does 1 FOS 12 steps many times per day at home, denies CP or SOB) Past Family History Family History (Updated 11/30/20 @ 09:04 by Tran Macias RN) Mother Family history of diabetes mellitus Grandmother (Maternal) Family history of diabetes mellitus Family/Other Family history of diabetes mellitus GRANDDAUGHTER Past Surgical History Surgical History (Updated 12/12/20 @ 15:52 by Rick Smith) Fusion of spine X [id number] History of bilateral tubal ligation History of cardiac cath 06/2020 [facility]-3 STENTS History of colonoscopy WITH POLYPECTOMY History of dilatation and curettage History of knee surgery RIGHT History of shoulder surgery L REPAIR LABRUM Past Anesthesia History No Hx of Anesthesia Complications and No Family Hx of Anesthesia Complications History of PONV No Hx of PONV and Hx of Motion Sickness (with vertigo, cannot lay flat) Social History Smoking Status: Never smoker Do You Dip or Chew Tobacco: No Hx Alcohol Use: No Hx Substance Use: No Review of Systems Pt denies any recent chest pain, shortness of breath, palpitations, cough, fever, URI, or uncontrolled acid reflux (controlled with PM Tums). Physical Exam Vital Signs BP: 146/73 P: 63bpm SPO2: 97% RA T: 98.3 F R: 16 ENMT Mouth: + small oral opening; no dental restorations, no chipped teeth and no loose teeth Thyromental Distance: > or= 3.5 Finger Breadths Mallampati Class: III Neck + thick neck and + limited neck extension (gets vertigo with full extension) Respiratory normal respiratory effort, lungs clear to auscultation Cardiovascular RRR, no murmur, no edema Vessels: no carotid bruit Testing Laboratory Results 12/12/20 11:30 12/12/20 11:30 PT 9.7 Seconds (9.0-12.0) 12/12/20 11:30 INR 1.0 (0.9-1.1) 12/12/20 11:30 APTT 22.4 Seconds (21.0-31.0) 12/12/20 11:30 Urine Color Yellow 12/12/20 11:30 Urine Appearance Clear (Clear) 12/12/20 11:30 Urine pH 7.5 (4.5-7.5) 12/12/20 11:30 Ur Specific [place] 1.021 (1.000-1.030) 12/12/20 11:30 Urine Protein Negative (Negative) 12/12/20 11:30 Urine Glucose (UA) Negative (Negative) 12/12/20 11:30 Urine Ketones Negative (Negative) 12/12/20 11:30 Urine Nitrite Negative (Negative) 12/12/20 11:30 Ur Leukocyte Esterase Negative (Negative) 12/12/20 11:30 Blood Type A Positive 12/12/20 11:30 Antibody Screen NEGATIVE 12/12/20 11:30 Electrocardiogram Date: 11/16/20 Findings: + NSR @ (68bpm) Nonspecific ST abnormality. Compared EKG of 06/24/2020, no significant change was found. Chest X-Ray Date: 12/12/20 Findings: + NAD Echocardiogram Date: 11/17/18 EF: 60-65% Normal LV structure and systolic function. Spectral Doppler shows impaired r elaxation pattern of LV diastolic fillinggrade 1. Mild mitral annular calcification. Stress Test Date: 11/20/[address] depression during stress in inferior and lateral leads but then transition to [address] depression in recovery. Negative stress echo for ischemia. Normal stress echocardiogram. The stress is adequate. Cardiac Catheterization Date: 06/09/20 Two-vessel coronary disease with chronic total occlusion of the right coronary artery with severe stenosis in a small to medium size twos marginal branch. Successful PCI of the right coronary artery.
[2020-12-12 11:57] LABS: Basophils # (auto) 0.02 K/uL (0-0.2); Basophils % (auto) 0.4 %; Eosinophils # (auto) 0.12 K/uL (0-0.5); Eosinophils % (auto) 2.5 %; Hematocrit (blood only) 40.4 % (37-47); Hemoglobin 13.8 g/dL (12.0-16.0); Immature Granulocytes # (auto) 0.01 K/uL (0.00-0.02); Immature Granulocytes % (auto) 0.2 %; Lymphocytes # (auto) 1.59 K/uL (1.2-3.4); Lymphocytes % (auto) 33.3 %; Mean Corpuscular Hemoglobin 30.9 pg (25-34); Mean Corpuscular Hgb Conc 34.2 g/dL (32-36); Mean Corpuscular Volume 90.4 fL (80-100); Mean Platelet Volume 9.6 fL (7.4-10.4); Monocytes # (auto) 0.39 K/uL (0.11-0.59); Monocytes % (auto) 8.2 %; Neutrophils # (auto) 2.65 K/uL (1.4-6.5); Neutrophils % (auto) 55.4 %; Platelet Count 212 K/uL (130-400); RDW Coefficient of Variation 12.8 % (11.5-14.5); RDW Standard Deviation 42.2 fL (36.4-46.3); Red Blood Count 4.47 M/uL (4.2-5.4); White Blood Count 4.78 K/uL (4.8-10.8)
[2020-12-12 12:06] LABS: Appearance Urine Clear (Clear); Bilirubin Urine Negative (Negative); Blood Urine Negative (Negative); Color Urine Yellow; Glucose Urine UA Negative (Negative); Ketones Urine Negative (Negative); Leukocyte Esterase Urine Negative (Negative); Nitrite Urine Negative (Negative); Protein Urine Negative (Negative); Specific Gravity Urine 1.021 (1.000-1.030); Urobilinogen Urine Negative (Negative); pH Urine 7.5 (4.5-7.5)
--- NOTE | 2020-12-12 12:08 | XRay Report ---
XR chest Pre-admission PA/Lat HISTORY: 70 years-old Female pat chronic back pain COMPARISON: Chest radiographs 10/24/2016 TECHNIQUE: PA and lateral views of the chest FINDINGS: Cardiac mediastinal and hilar silhouettes are within normal limits. Coronary arterial stent. No pneum othorax, pleural effusion, airspace consolidation or overt pulmonary edema. Degenerative changes of t he shoulders and spine. IMPRESSION: No acute process. ACT 112: Negative or not required by law. The above report was generated using voice recognition software. It may contain grammatical, syntax o r spelling errors. Electronically signed by: Stefan Caicedo M.D. 12/12/2020 12:06 PM
[2020-12-12 12:14] LABS: Partial Thromboplastin Ratio 0.9; Partial Thromboplastin Time 22.4 Seconds (21.0-31.0); Prothrombin Time 9.7 Seconds (9.0-12.0)
[2020-12-12 12:51] LABS: BUN Creatinine Ratio 21.5 (10-20); Calcium 10.1 mg/dl (8.5-10.1); Creatinine Clr Calc Pharmacy 64.7 ml/min; Est GFR (African American) 97.4; Potassium 4.7 mmol/L (3.5-5.1)
[~2021-01-02 08:04] MED LIST changes: +ACETAMINOPHEN 500 MG TAB PO SCH; -ATROPINE SULFATE 0.1 MG/ML 5ML SYR IV PRN; -CALC500C3 PO; -CEFAZOLIN 1000MG/55 ML D5W IV SCH; -CHOL2000 PO; +CeleBREX 200 MG CAP PO SCH; -EpHEDrine SULFATE INJ 50 MG/ML AMP IV PRN; -FENTANYL CITRATE INJ 50 MCG/1 ML 2 ML VIAL IV PRN; +GABAPENTIN 300 MG CAP PO SCH; -HUMALOG SC; -HYDROmorphone INJ 1 MG/ML SYR IV PRN; -IBUP-1277 PO; -INSDGI SC; -LACTATED RINGER'S 1000ML 1,000 ML IV SCH; -LEVO50TA PO; -LISI-729 PO; +LR 15ML/HR IV SCH; -MECL1TAB42 PO; -ONDANSETRON INJ 2 MG/ML 2 ML VIAL IV PRN; +ceFAZolin 1000MG 1,000 MG/7.5 ML SYR IV SCH
[2021-01-02] MEDS ORDERED: fentaNYL citrate 100 MCG/2 ML VIAL ONE (08:16)
[2021-01-02] MEDS ORDERED: MIDAZOLAM HCL 1 MG/ML 2ML VIAL ONE (08:16)
[2021-01-02] MEDS: GABAPENTIN 600 MG DOSE PO SCH ×2 (08:32→08:41)
--- NOTE | 2021-01-02 08:38 | History & Physical Bridge Note ---
Date of Service January 02, 2021 History & Physical Bridge Note I have examined the patient, reviewed the History & Physical and in the interval since the performance of the History & Physical I have noted the following changes of clinical significance: no changes noted
--- NOTE | 2021-01-02 08:39 | History & Physical Report ---
Date of Service January 02, 2021 Assessment & Plan (1) Lumbar stenosis with neurogenic claudication: Admission and Anticipated Discharge Date Admission Date: L2-L3 decompression fusion, L3-L4 hardware removal History of Present Illness Chief Complaint: Back and leg pain Primary Care Provider: Jose A Ortiz This is a 70-year-old female known to me the presents marked clinical status. She does have evidence of severe spinal stenosis L2-L3 and is here for surgical invention. Allergies Allergy/AdvReac Type Severity Reaction Status Date / Time caffeine Allergy Unknown HEART RACES Verified 11/30/20 08:49 cat dander Allergy Unknown CAT/DOG Verified 11/30/20 08:49 DANDER-THROATS CLOSES No Known Drug Allergies Allergy Unknown NONE Verified 11/30/20 08:49 Home Medications Medication Instructions Recorded Confirmed Type acetaminophen [Tylenol Extra 500 mg PO Q6H PRN 11/30/20 11/30/20 History Strength] aspirin [Aspir-81] 81 mg PO QAM 11/30/20 11/30/20 History calcium carbonate [Tums] 200 mg PO BID PRN 11/30/20 11/30/20 History cholecalciferol (vitamin D3) 50 mcg PO QAM 11/30/20 11/30/20 History [Vitamin D3] insulin aspart U-100 [Novolog 1 sliding scale dose SUBCUT TIDM 11/30/20 11/30/20 History U-100 Insulin aspart] insulin glargine [Lantus U-100 42 unit SUBCUT HS 11/30/20 11/30/20 History Insulin] levothyroxine 50 mcg PO QAM 11/30/20 11/30/20 History lisinopril 5 mg PO QAM 11/30/20 11/30/20 History meclizine 12.5 - 25 mg PO DAILY PRN 11/30/20 11/30/20 History metoprolol tartrate 25 mg PO BID 11/30/20 11/30/20 History rosuvastatin 10 mg PO QPM 11/30/20 11/30/20 History ticagrelor [Brilinta] 90 mg PO BID 11/30/20 11/30/20 History Past Med/Surg History Medical History (Updated 12/12/20 @ 15:51 by Rick Smith) Anxiety CAD (coronary artery disease) 3 stents to RCA 06/09/20 F/U DR KENDRA MEYERS Chronic back pain Diabetes mellitus, type 2 well controlled. Hypothyroidism Neuropathy LEFT FOOT On anticoagulant therapy Osteoarthritis Surgical History (Updated 12/12/20 @ 15:52 by Rick Smith) Fusion of spine X [id number] History of bilateral tubal ligation History of cardiac cath 06/2020 [facility] STENTS History of colonoscopy WITH POLYPECTOMY History of dilatation and curettage History of knee surgery RIGHT History of shoulder surgery L REPAIR LABRUM Family History (Updated 11/30/20 @ 09:04 by Tran Macias, RN) Mother Family history of diabetes mellitus Grandmother (Maternal) Family history of diabetes mellitus Family/Other Family history of diabetes mellitus GRANDDAUGHTER Social History Smoking Status: Never smoker Second Hand Exposure: Yes (SPOUSE SMOKED-); Do You Dip or Chew Tobacco: No; Hx Alcohol Use: No Hx Substance Use: No Preferred Language: Ghanaian Communication Ability: Effective Creasing And Cutting Press Feeder Required: No Beliefs That Will Affect Care: None Current Living Situation: Alone Other Information That Helps Us Care for You: No Feels Safe at Home: Yes Safety Concerns: Feels Safe At This Time Assistive Devices: Glasses Physical Exam Physical Exam: Patient is alert and oriented Heart regular rhythm Lungs clear to auscultation
[2021-01-02] MEDS ORDERED: BUPIVACAINE/EPINEPHRINE 0.5% MPF 1:200,000 30 ML VIAL ONE (08:55)
[2021-01-02] MEDS ORDERED: ONDANSETRON INJ 2 MG/ML 2 ML VIAL IV PRN ×2 (08:57→13:04)
[2021-01-02] MEDS ORDERED: ATROPINE SULFATE 0.1 MG/ML 10ML SYR IV PRN (08:57)
[2021-01-02] MEDS ORDERED: PROPOFOL IV EMULSION 10 MG/ML 20 ML VIAL IV ONE (08:57)
[2021-01-02] MEDS ORDERED: ROCURONIUM BROMIDE 10 MG/ML 5 ML VIAL IV ONE (08:57)
[2021-01-02] MEDS ORDERED: LABETALOL HCL IV 5 MG/ML 20ML IV PRN (08:57)
[2021-01-02] MEDS ORDERED: LIDOCAINE HCL 2% 2 ML VIAL/AMP(20MG/ML) INFIL ONE (08:57)
[2021-01-02] MEDS ORDERED: PHENYLEPHRINE 100MCG/ML 5ML SYR ONE (09:58)
[2021-01-02] MEDS ORDERED: ONDANSETRON INJ 2 MG/ML 2 ML VIAL ONE (09:58)
[2021-01-02] MEDS ORDERED: DEXAMETHASONE SOD INJ 4 MG/ML VIAL ONE (09:58)
[2021-01-02] MEDS ORDERED: NEOSTIGMINE METHYLSULFATE 1 MG/ML 10ML VIAL ONE (10:00)
[2021-01-02] MEDS ORDERED: GLYCOPYRROLATE 0.2 MG/ML VIAL ONE (10:00)
[2021-01-02] MEDS ORDERED: ePHEDrine sulfate 50 MG/ML SYR ONE (10:00)
[2021-01-02] MEDS ORDERED: FLOSEAL HEMOSTATIC MATRIX 10ML TOP ONE (11:01)
--- NOTE | 2021-01-02 11:04 | Operative Report ---
Post Operative Report Pre & Post Diagnosis Operation Date: 01/02/21 09:35 Pre-Op Diagnosis: Lumbar Stenosis with Neurogenic Claudication Post-Op Diagnosis: Lumbar Stenosis with Neurogenic Claudication I identified the patient and participated in the time-out.: Yes Procedure Operation Date: 01/02/21 09:35 Actual Procedures #1 removal of posterior instrumentation L3-L4. #2 exploration of fusion L3-L4. #3 lumbar decompression with bilateral medial facetectomies and foraminotomies L1-2 and L2-3. #4 posterior spinal fusion L2-3. #5 placement posterior instrumentation L2-3. #6 interbody fusion L2-3. #7 placement peek cage 10 x 22 mm at L2-3. #8 placement locally harvested morselized autograft in the posterior gutters. #9 placement infuse collagen sponge and master graft in the posterior lateral gutters and I factor in the interbody space. Surgeon Alan Murillo, Allied Health Teacher Rebekah Erickson Estimated Blood Loss 200 Findings Consistent with Post-Op Diagnosis Specimens None Indications This is a 70-year-old female who presents with above-mentioned diagnosis after failing stents course of nonoperative care she is here for the above-mentioned procedure. Description of Procedure Patient was met with identified informed consent obtained. Patient was then taken to the operative suite underwent a patient placed in a prone position on the Chris table top Colin frame. All bony prominences well-padded eyes inspected to ensure no external pressure placed upon them. This point the lumbar spine was prepped and draped in a sterile fashion. Sharp dissection with the assistance of Bovie cautery performed down to and exposing the lamina and transverse processes of L2 and the instrumentation at L3 and L4 bilaterally. Then proceeded move the hardware at L3-L4 bilaterally explored the fusion mass noting it to be mature and intact. Then performed complete laminectomy of L2 partial laminectomy of L1 including bilateral medial facetectomies and foraminotomies addressing all neural compression as well as addressing the disc herniation on the left. After complete decompression pedicle screws were placed in L2 and L3 bilaterally with assistance of fluoroscopy and the proper sized parvin placed. By way of a transforaminal approach on the left complete discectomy was performed endplates curetted to subcortical bleeding bone and a 10 x 22 mm peek cage filled with I factor tapped in position. The rods were then locked in final position bilaterally. The transverse processes of L2 and L3 burred to subcortical bleeding bone. Infuse collagen sponge master graft local autograft was placed in the posterior gutters. 15 round JIMBO drain inserted. The incision was then closed with 1 Vicryl in the fascia 2-0 Vicryl subcutaneously and 4 Monocryl for final skin closure. Steri-Strip sterile dressings placed. Patient will continue PACU stable condition. Please note spinal cord monitoring was utilized at the procedure no changes noted. Lastly Rebekah rEickson was present at the entire procedure involved the patient positioning complex portions of the surgery and final skin closure. I attest to the content of the Intraoperative Record and any orders documented therein. Any exceptions are noted below.
[2021-01-02] MEDS: HYDROmorphone INJ 1 MG/ML SYRINGE IV PRN ×7 (11:38→12:13)
--- NOTE | 2021-01-02 11:51 | Fluoroscopy Report ---
FL lumbar spine 2-3V CLINICAL HISTORY: L2-L3 DECOMPRESSION AND FUSION L3-L4 HW REMOVAL COMPARISON STUDY: Lumbar spine radiographs November 19, 2016. FLUOROSCOPY TIME: 11 seconds. FLUOROSCOPIC IMAGES: 3 FINDINGS: Previous L3-L4 discectomy is noted as well as surgical hardware projecting over the posteri or elements within the lower lumbar spine. Interval L2-L3 discectomy with posterior decompression ewa ateral pedicle screw fusion is noted. IMPRESSION: Fluoroscopy provided during interval L2-L3 discectomy, posterior decompression and bilat eral pedicle screw fusion. ACT 112: Negative or not required by law. Electronically signed by: Prasad Melchor M.D. 01/02/2021 11:50 AM
[2021-01-02] MEDS ORDERED: hydrOXYzine HCl 25 MG TAB PO PRN (13:04)
[2021-01-02] MEDS ORDERED: ALUMINUM/MAGNESIUM SUSP 30 ML UDC PO PRN (13:04)
[2021-01-02] MEDS ORDERED: traMADol HCL 50 MG TABLET PO PRN (13:04)
[2021-01-02] MEDS ORDERED: DO NOT ADMINISTER PNEUMOCOCCAL VACCINE PRN (13:04)
[2021-01-02] MEDS ORDERED: diphenhydrAMINE Capsule 25 MG CAP PO PRN (13:04)
[2021-01-02] MEDS ORDERED: MAGNESIUM HYDROXIDE SUSP 30 ML UDC PO PRN (13:04)
[2021-01-02] MEDS ORDERED: ONDANSETRON 4 MG OD TAB PO PRN (13:04)
[2021-01-02] MEDS ORDERED: PROMETHAZINE HCL 12.5 MG in SODIUM CHLORIDE 0.9% 50 ML IV PRN (13:04)
[2021-01-02] MEDS ORDERED: SOD PHOSPHATE/SOD BIPHOSPHATE ENEMA 132 ML BTL PR PRN (13:04)
[2021-01-02] MEDS ORDERED: HYDROmorphone INJ 1 MG/ML SYRINGE IV PRN (13:04)
[2021-01-02] MEDS ORDERED: METOCLOPRAMIDE HCL INJ 5 MG/ML 2 ML VIAL IV PRN (13:04)
[2021-01-02] MEDS ORDERED: LORazepam 0.5 MG TAB PO PRN (13:04)
[2021-01-02] MEDS ORDERED: NALOXONE HCL 0.4 MG/1 ML VIAL/CARP IV PRN (13:04)
[2021-01-02] MEDS ORDERED: bisacodyL 10 MG SUPP PR PRN (13:04)
[2021-01-02] MEDS ORDERED: DO NOT ADMINISTER FLU VACCINE PRN (13:04)
[2021-01-02] MEDS ORDERED: LORazepam 0.5 MG/1 ML VIAL IV PRN (13:04)
[2021-01-02] MEDS ORDERED: CALCIUM CARBONATE 500 MG CHEWABLE TAB PO PRN (13:04)
[2021-01-02] MEDS ORDERED: HYDROmorphone INJ 0.5 MG/0.5 ML SYR IV PRN (13:04)
[2021-01-02] MEDS ORDERED: ACETAMINOPHEN 1,000 MG/100 ML VIAL IV PRN (13:04)
[2021-01-02] MEDS ORDERED: FAMOTIDINE 20 MG TAB PO PRN (13:04)
[2021-01-02] MEDS: SODIUM CHLORIDE 0.9% 1000ML 1,000 ML IV SCH ×2 (13:49→23:38)
--- NOTE | 2021-01-02 13:52 | Anesthesiology Progress Note ---
Date of Service January 02, 2021 Anesthesia Post Procedure Vital Signs Vital Signs: Temp Pulse Pulse Resp BP BP Pulse Ox 01/02/21 13:17 36.7 C 66 18 129/73 97 01/02/21 12:25 36.5 C 66 16 149/65 H 96 01/02/21 12:15 64 16 151/73 H 97 01/02/21 12:05 62 16 130/62 99 01/02/21 11:55 67 16 157/69 H 99 01/02/21 11:45 67 16 159/67 H 98 01/02/21 11:35 69 14 144/103 H 98 01/02/21 11:25 36.3 C L 66 14 181/61 H 99 01/02/21 09:03 36.7 C 66 18 146/76 H 99 Pain Intensity Back: Pain Intensity: 2 Transfer of Care Handoff Completed per policy Notes Mental Status: alert / awake / arousable Patient Amnestic to Procedure: Yes Nausea / Vomiting: adequately controlled Pain: adequately controlled Airway Patency, RR, SpO2: stable & adequate BP & HR: stable & adequate Hydration State: stable & adequate Anesthetic Complications: no major complications apparent
[2021-01-02] MEDS ORDERED: PHARMACY GLYCEMIC MGMT CONSULT SCH (14:12)
[2021-01-02] MEDS ORDERED: GLUCAGON FOR INJ 1 MG VIAL IM PRN (14:15)
[2021-01-02] MEDS ORDERED: INSULIN ASPART 100 UNITS/ML 3 ML PEN SC ONE (14:15)
[2021-01-02] MEDS ORDERED: DEXTROSE 50% 50 ML SYRINGE IV PRN (14:15)
[2021-01-02] MEDS ORDERED: GLUCOSE 10 TABS/TUBE PO PRN (14:15)
[2021-01-02] MEDS ORDERED: GLUCOSE 40% GEL 15 GM TUBE PO PRN (14:15)
[2021-01-02] MEDS ORDERED: CARBOHYDRATES FOR HYPOGLYCEMIA PO PRN (14:15)
[2021-01-02] MEDS ORDERED: NovoLIN-N (NPH) PER UNIT CHARGE SQ ONE (14:15)
--- NOTE | 2021-01-02 14:17 | Hospitalist Consultation ---
Date of Consultation January 02, 2021 Assessment & Plan (1) S/P spinal surgery: This is a 70-year-old female with PMH of type 2 diabetes, CAD status post LANA x 3 in Jun 2020 at [facility], hypothyroidism and other medical problems listed below who is POD#0 s/p removal of posterior instrumentation L3-L4, lumbar decompression with bilateral medial facetectomies and foraminotomies L1-2 and L2-3 and posterior spinal fusion L2-[address] Murillo. Per ortho for pain control, wound care, anticoagulation and activities Monitor H&H (EBL 200ml, pre-op hgb 13.8) Continue incentive spirometry, PT/OT when appropriate (2) CAD (coronary artery disease): Follows with Dr. Haskins at [facility] Had LANA x 3 placed in June 2020 Brilinta held for 3 days preoperatively by computer technology trainer with instructions for resuming medication as soon as possible per surgeon post-operatively (3) Diabetes mellitus, type 2: Hold home agents SSI while in-patient Glycemic consult placed by primary service BSG AC HS (4) Hypothyroidism: Continue levothyroxine PCP: Angel Dispo: Per ortho service Patient seen in collaboration with Dr. Chirinos. Please see addendum. Supervising Physician Co-Signing Physician Notes Patient seen and examined by me, care coordinated with Valery Smith PA-C, please see her note above for further detail. Patient is currently lying in bed, status post spinal surgery with Dr. Murillo earlier today. She still feels quite tired from anesthesia. She is alert and oriented answering questions appropriately. Lung sounds clear to auscultation bilaterally, without any wheezing rhonchi or crackles, heart sounds regular, abdomen soft, nontender nondistended. Patient moves lower extremities. SCDs applied. Has history of CAD, status post stents placements in June, currently on Brilinta and aspirin, was advised to hold Brilinta preop, and continue aspirin. Plan for resuming Brilinta as soon as possible per surgeon discretion. Yonas Chirinos MD History of Present Illness Reason for Consultation: Postop med management Attending Physician: Alan Murillo DO History of Present Illness This is a 70-year-old female with PMH of type 2 diabetes, CAD status post LANA x 3 in Jun 2020 at [facility], hypothyroidism and other medical problems listed below who is POD#0 s/p removal of posterior instrumentation L3-L4, lumbar decompression with bilateral medial facetectomies and foraminotomies L1-2 and L2-3 and posterior spinal fusion L2-[address] Murillo. Patient is feeling well postoperatively. Still very fatigued from anesthesia and nauseated but no episode of vomiting. Denies any surgical site pain. No numbness or pain in bilateral lower extremity. Denies any fever, chills, headache or lightheadedness. No chest pain, shortness of breath. No abdominal pain or dysuria. Follows with Dr. Ortiz for primary care. Had Brilinta held for 4 days preoperatively by computer technology trainer with instructions for resuming medication communicated to Dr. Murillo, per patient. Allergies Allergy/AdvReac Type Severity Reaction Status Date / Time caffeine Allergy Unknown HEART RACES Verified 01/02/21 08:59 cat dander Allergy Unknown CAT/DOG Verified 01/02/21 08:59 DANDER-THROATS CLOSES No Known Drug Allergies Allergy Unknown NONE Verified 01/02/21 08:59 Home Medications Medication Instructions Recorded Confirmed Type acetaminophen [Tylenol Extra 500 mg PO Q6H PRN 11/30/20 01/02/21 History Strength] aspirin [Aspir-81] 81 mg PO QAM 11/30/20 01/02/21 History calcium carbonate [Tums] 200 mg PO BID PRN 11/30/20 01/02/21 History cholecalciferol (vitamin D3) 50 mcg PO QAM 11/30/20 01/02/21 History [Vitamin D3] insulin aspart U-100 [Novolog 1 sliding scale dose SUBCUT TIDM 11/30/20 01/02/21 History U-100 Insulin aspart] insulin glargine [Lantus U-100 42 unit SUBCUT HS 11/30/20 01/02/21 History Insulin] levothyroxine 50 mcg PO QAM 11/30/20 01/02/21 History lisinopril 5 mg PO QAM 11/30/20 01/02/21 History meclizine 12.5 - 25 mg PO DAILY PRN 11/30/20 01/02/21 History metoprolol tartrate 25 mg PO BID 11/30/20 01/02/21 History rosuvastatin [Crestor] 10 mg PO QPM 11/30/20 01/02/21 History ticagrelor [Brilinta] 90 mg PO BID 11/30/20 01/02/21 History Patient History Medical History (Updated 01/02/21 @ 15:15 by Valery Smith PA-C) Anxiety CAD (coronary artery disease) 3 stents to RCA 06/09/20 F/U DR KENDRA MEYERS Chronic back pain Diabetes mellitus, type 2 well controlled. Hypothyroidism Neuropathy LEFT FOOT On anticoagulant therapy Osteoarthritis Surgical History (Updated 01/02/21 @ 15:15 by Valery Smith PA-C) Fusion of spine X [id number] [place]/2018-[facility] History of bilateral tubal ligation History of cardiac cath 06/2020 [facility] STENTS History of colonoscopy WITH POLYPECTOMY History of dilatation and curettage History of knee surgery RIGHT History of shoulder surgery L REPAIR LABRUM Family History Mother Family history of diabetes mellitus Grandmother (Maternal) Family history of diabetes mellitus Family/Other Family history of diabetes mellitus GRANDDAUGHTER Social History Smoking Status: Never smoker Second Hand Exposure: Yes (SPOUSE SMOKED-); Do You Dip or Chew Tobacco: No; Hx Alcohol Use: No Hx Substance Use: No Preferred Language: Samoan Communication Ability: Effective Stockroom Worker Required: No Beliefs That Will Affect Care: None Current Living Situation: Alone Other Information That Helps Us Care for You: No Feels Safe at Home: Yes Safety Concerns: Feels Safe At This Time Assistive Devices: Walker Review of Systems Review of Systems: At least ten systems reviewed and negative except as noted in the HPI. Physical Exam Physical Exam: General Appearance: WD/WN, vitals as above, NAD, sitting up in bed, pleasant, conversing easily but drowsy Head: normocephalic, atraumatic Eyes: normal inspection, PERRL, conjunctivae normal, anicteric sclerae ENT: external ear and nose normal, oropharynx normal Neck: normal visual inspection, trachea midline, no thyromegaly Respiratory: normal respiratory effort, lungs clear to auscultation, no wheeze, rales, rhonchi. No accessory muscle use Cardiovascular: regular rate, rhythm, no murmur, normal peripheral pulses, no BLE edema Abdomen/GI: normal bowel sounds, soft, nontender, no hepatosplenomegaly Extremities/Musculoskeletal: Spinal surgical dressing c/d/i. JIMBO drain visualized. No cyanosis or clubbing, extremities motor strength 5/5 Neurologic: PERRL, CN's II-XI intact bilaterally and moves all extremities Psychiatric: A+Ox3, euthymic affect Skin: no rashes, normal color, warm/dry Results & Data Results & Data ([facility]) Vital Signs (Past 12 Hours) Vital Signs Temp Pulse Pulse Resp BP BP Pulse Ox 01/02/21 13:50 36.4 C L 66 18 166/77 H 97 01/02/21 13:17 36.7 C 66 18 129/73 97 01/02/21 12:25 36.5 C 66 16 149/65 H 96 01/02/21 12:15 64 16 151/73 H 97 01/02/21 12:05 62 16 130/62 99 01/02/21 11:55 67 16 157/69 H 99 01/02/21 11:45 67 16 159/67 H 98 01/02/21 11:35 69 14 144/103 H 98 01/02/21 11:25 36.3 C L 66 14 181/61 H 99 01/02/21 09:03 36.7 C 66 18 146/76 H 99 Diagnostic Findings Chest X-Ray 12/12/20 08:28 XR chest Pre-admission PA/Lat HISTORY: 70 years-old Female pat chronic back pain COMPARISON: Chest radiographs 10/24/2016 TECHNIQUE: PA and lateral views of the chest FINDINGS: Cardiac mediastinal and hilar silhouettes are within normal limits. Coronary arterial stent. No pneumothorax, pleural effusion, airspace consolidation or overt pulmonary edema. Degenerative changes of the shoulders and spine. IMPRESSION: No acute process. ACT 112: Negative or not required by law. The above report was generated using voice recognition software. It may contain grammatical, syntax or spelling errors. Electronically signed by: Stefan Caicedo M.D. 12/12/2020 12:06 PM Lumbar Spine X-Ray 01/02/21 09:35 FL lumbar spine 2-3V CLINICAL HISTORY: L2-L3 DECOMPRESSION AND FUSION L3-L4 HW REMOVAL COMPARISON STUDY: Lumbar spine radiographs November 19, 2016. FLUOROSCOPY TIME: 11 seconds. FLUOROSCOPIC IMAGES: 3 FINDINGS: Previous L3-L4 discectomy is noted as well as surgical hardware projecting over the posterior elements within the lower lumbar spine. Interval L2-L3 discectomy with posterior decompression bilateral pedicle screw fusion is noted. IMPRESSION: Fluoroscopy provided during interval L2-L3 discectomy, posterior decompression and bilateral pedicle screw fusion. ACT 112: Negative or not required by law. Electronically signed by: Prasad Melchor M.D. 01/02/2021 11:50 AM
--- NOTE | 2021-01-02 14:31 | Pharmacy Report ---
Pharmacy Glycemic Short Note 2 - Date of Service January 02, 2021 - Glycemic Short BSG Results (Last 24 hours): 01/02/21 01/02/21 01/02/21 08:32 11:27 13:26 POC Glucose 139 H 207 H 233 H OUTPATIENT ANTIDIABETIC REGIMEN: * Lantus 42 units Q HS * Novolog 2 units per 15 grams consumed, ~15 units per meal * A1c = ? ASSESSMENT: * Type 2 diabetic, admitted for lumbar decompression / fusion * Patient did receive dexamethasone 4mg IV bronson-op * BSGs did climb following surgery into the 200s * Will administer NPH ~0.3units/kg SQ x 1 STAT to combat steroid induced hyperglycemia * Lantus will continue at dose near equivalent to outpt requirement * Novolog CF and CR will be based upon out-pt regimen PLAN FOR INPATIENT GLYCEMIC CONTROL: * Hold outpatient oral diabetes medications * Basal insulin * Lantus 40 units SQ Q HS * Bolus insulin * NovoLog per scale ACHS and at 0200 tonight * Goal Range: Low 110 mg/dL - High 140 mg/dL * Correction Factor: 15 mg/dL/unit * Nutritional / Prandial insulin per carb ratio of 1 unit per 5 grams CHO consumed PLAN FOR DISCHARGE: * will check A1c this admission to help guide discharge recs
[2021-01-02] MEDS: INSULIN ASPART 100 UNITS/ML 3 ML PEN SC SCH ×2 (17:59→21:38)
[2021-01-02] MEDS: oxyCODONE HCL IR 5 MG TAB (IMMEDIATE RELEASE) PO PRN (18:04)
[2021-01-02] MEDS: ceFAZolin 2000MG 2,000 MG/15 ML SYR IV SCH (18:27)
[2021-01-02] MEDS: DOCUSATE SODIUM/SENNA 50/8.6MG TAB PO SCH (20:24)
[2021-01-02] MEDS: ROSUVASTATIN CALCIUM 10 MG TAB PO SCH (20:24)
[2021-01-02] MEDS: METOPROLOL TARTRATE 25 MG TAB PO SCH (20:24)
[2021-01-02] MEDS ORDERED: INSULIN GLARGINE SOLOSTAR 100 UNITS/ML 3 ML PEN SC SCH (21:00)
[2021-01-03] MEDS ORDERED: INSULIN ASPART 100 UNITS/ML 3 ML PEN SC SCH (02:00)
[2021-01-03] MEDS: ACETAMINOPHEN 500 MG TAB PO PRN ×2 (02:09→23:45)
[2021-01-03] MEDS: ceFAZolin 2000MG 2,000 MG/15 ML SYR IV SCH (02:09)
[2021-01-03] MEDS: POLYETHYLENE (MIRALAX) 17 GM PACK PO SCH ×4 (05:40→23:40)
[2021-01-03] MEDS: LEVOTHYROXINE SODIUM 50 MCG TABLET PO SCH (05:40)
[2021-01-03 06:27] LABS: Basophils # (auto) 0.01 K/uL (0-0.2); Basophils % (auto) 0.1 %; Hematocrit (blood only) 31.1 % (37-47); Hemoglobin 10.7 g/dL (12.0-16.0); Immature Granulocytes # (auto) 0.01 K/uL (0.00-0.02); Immature Granulocytes % (auto) 0.1 %; Lymphocytes # (auto) 1.09 K/uL (1.2-3.4); Lymphocytes % (auto) 15.3 %; Mean Corpuscular Hemoglobin 31.3 pg (25-34); Mean Corpuscular Hgb Conc 34.4 g/dL (32-36); Mean Corpuscular Volume 90.9 fL (80-100); Mean Platelet Volume 9.7 fL (7.4-10.4); Monocytes # (auto) 0.46 K/uL (0.11-0.59); Monocytes % (auto) 6.5 %; Neutrophils # (auto) 5.56 K/uL (1.4-6.5); Platelet Count 195 K/uL (130-400); RDW Standard Deviation 42.9 fL (36.4-46.3); Red Blood Count 3.42 M/uL (4.2-5.4); White Blood Count 7.13 K/uL (4.8-10.8)
[2021-01-03 06:55] LABS: Estimated Average Glucose 157 mg/dl; Hemoglobin A1C 7.1 % (4.5-5.6)
[2021-01-03 07:09] LABS: BUN Creatinine Ratio 17.5 (10-20); Calcium 7.9 mg/dl (8.5-10.1); Creatinine Clr Calc Pharmacy 71.6 ml/min; Est GFR (African American) 104.5; Est GFR (Non-African American) 90.1
[2021-01-03] MEDS: oxyCODONE HCL IR 5 MG TAB (IMMEDIATE RELEASE) PO PRN ×2 (08:00→19:31)
--- NOTE | 2021-01-03 08:07 | Hospitalist Progress Note ---
Date of Service January 03, 2021 Assessment & Plan (1) S/P spinal surgery: This is a 70-year-old female with PMH of type 2 diabetes, CAD status post LANA x 3 in Jun 2020 at [facility], hypothyroidism and other medical problems listed below who is POD#1 s/p removal of posterior instrumentation L3-L4, lumbar decompression with bilateral medial facetectomies and foraminotomies L1-2 and L2-3 and posterior spinal fusion L2-[address] Murillo. Per ortho for pain control, wound care, anticoagulation and activities Continue incentive spirometry, PT/OT when appropriate Monitor H&H Acute blood loss anemia and dilutional anemia Hgb 10.7, pre-op 13.8 - cont. to closely monitor - no need for blood transfusion at this time Vertigo -Patient reports history of vertigo for past 20 years -It helps her if she lays on her side or does not look up too fast -Takes meclizine as needed, but usually at night -We will provide meclizine as needed for the patient (2) CAD (coronary artery disease): Follows with Dr. Haskins at [facility] Had LANA x 3 placed in June 2020 Brilinta held for 3 days preoperatively by agriculture worker with instructions for resuming medication as soon as possible per surgeon post-operatively (3) Diabetes mellitus, type 2: Hold home agents SSI while in-patient Glycemic consult placed by primary service BSG AC HS (4) Hypothyroidism: Continue levothyroxine PCP: Angel Dispo: Per ortho service Admission and Anticipated Discharge Date Admission Date: January 02, 2021 Subjective Patient seen in follow-up of post op management, for CAD, diabetes, hypothyroidism Patient is status post spinal surgery with Dr. Murillo Currently she sitting up in a chair, in no acute distress, however complains of some vertigo reports she has history of vertigo for past 20 years, it helps her when she cannot lie on her side however she had to lay on her back because of the surgery No chest pain, shortness of breath, abdominal pain, vomiting she is passing little bit of gas, also ate a little She still has Kumar placed Review of Systems Review of Systems: All systems reviewed & are unremarkable except as noted in HPI & below Constitutional: no fever and no chills Respiratory: no cough and no dyspnea Cardiovascular: no chest pain and no palpitations Gastrointestinal: no abdominal pain, no nausea and no vomiting Physical Exam Physical Exam: General Appearance: WD/WN, NAD, sitting up in chair Head: normocephalic, atraumatic Eyes: normal inspection, PERRL, EOMI, conjunctivae normal, anicteric sclerae ENT: external ear and nose normal, oropharynx normal Neck: normal visual inspection, trachea midline, no thyromegaly Respiratory: normal respiratory effort, lungs clear to auscultation, no wheeze, rales, rhonchi. No accessory muscle use Cardiovascular: regular rate, rhythm, no murmur, normal peripheral pulses, no BLE edema Abdomen/GI: normal bowel sounds, soft, nontender Extremities: Compression stockings placed, no lower extremity edema noted, patient moves extremities spontaneously and w/o difficulty : Kumar catheter placed, drains clear yellow urine Neurologic: PERRL, EOMI, speech fluent, moves all extremities Psychiatric: A+Ox3, euthymic affect Skin: no rashes, normal color, warm/dry Results & Data Results & Data ([facility]) Vital Signs (Past 12 Hours) Vital Signs Temp Pulse Resp BP BP Pulse Ox 01/03/21 07:23 36.6 C 61 16 145/65 H 95 01/03/21 01:57 36.5 C 74 16 132/63 94 01/02/21 22:22 36.5 C 76 16 122/62 94 01/02/21 20:22 71 134/69 92 Laboratory Results 01/03/21 01/03/21 01/03/21 Range/Units 08:01 05:47 05:47 WBC (4.8-10.8) K/uL RBC (4.2-5.4) M/uL Hgb (12.0-16.0) g/dL Hct (37-47) % MCV (80-100) fL MCH (25-34) pg MCHC (32-36) g/dL RDW Std Deviation (36.4-46.3) fL RDW Coeff of Luci (11.5-14.5) % Plt Count (130-400) K/uL MPV (7.4-10.4) fL Immature Gran % (Auto) % Neut % (Auto) % Lymph % (Auto) % [place] % (Auto) % Eos % (Auto) % Baso % (Auto) % Neut # (Auto) (1.4-6.5) K/uL Lymph # (Auto) (1.2-3.4) K/uL [place] # (Auto) (0.11-0.59) K/uL Eos # (Auto) (0-0.5) K/uL Baso # (Auto) (0-0.2) K/uL Immature Gran # (Auto) (0.00-0.02) K/uL Sodium 141 (136-145) mmol/L Potassium 4.0 (3.5-5.1) mmol/L Chloride 110 H (98-107) mmol/L Carbon Dioxide 27 (21-32) mmol/L Anion Gap 4.0 (3-11) BUN 12 (7-18) mg/dl Creatinine 0.66 (0.6-1.2) mg/dl Est Cr Clr Drug Dosing 71.6 ml/min Est GFR ( Amer) 104.5 Est GFR (Non-Af Amer) 90.1 BUN/Creatinine Ratio 17.5 (10-20) Glucose 132 H (70-99) mg/dl POC Glucose 125 H (70-99) mg/dl Estimat Average Glucose 157 mg/dl Hemoglobin A1c 7.1 H (4.5-5.6) % Calcium 7.9 L (8.5-10.1) mg/dl COVID-19 Eval Order SARS-CoV-2, RNA, NAAT (NEGATIVE) 01/03/21 01/03/21 01/02/21 Range/Units 05:47 01:55 20:46 WBC 7.13 (4.8-10.8) K/uL RBC 3.42 L (4.2-5.4) M/uL Hgb 10.7 L (12.0-16.0) g/dL Hct 31.1 L (37-47) % MCV 90.9 (80-100) fL MCH 31.3 (25-34) pg MCHC 34.4 (32-36) g/dL RDW Std Deviation 42.9 (36.4-46.3) fL RDW Coeff of Luci 13.0 (11.5-14.5) % Plt Count 195 (130-400) K/uL MPV 9.7 (7.4-10.4) fL Immature Gran % (Auto) 0.1 % Neut % (Auto) 78.0 % Lymph % (Auto) 15.3 % [place] % (Auto) 6.5 % Eos % (Auto) 0.0 % Baso % (Auto) 0.1 % Neut # (Auto) 5.56 (1.4-6.5) K/uL Lymph # (Auto) 1.09 L (1.2-3.4) K/uL [place] # (Auto) 0.46 (0.11-0.59) K/uL Eos # (Auto) 0.00 (0-0.5) K/uL Baso # (Auto) 0.01 (0-0.2) K/uL Immature Gran # (Auto) 0.01 (0.00-0.02) K/uL Sodium (136-145) mmol/L Potassium (3.5-5.1) mmol/L Chloride (98-107) mmol/L Carbon Dioxide (21-32) mmol/L Anion Gap (3-11) BUN (7-18) mg/dl Creatinine (0.6-1.2) mg/dl Est Cr Clr Drug Dosing ml/min Est GFR ( Amer) Est GFR (Non-Af Amer) BUN/Creatinine Ratio (10-20) Glucose (70-99) mg/dl POC Glucose 151 H 216 H (70-99) mg/dl Estimat Average Glucose mg/dl Hemoglobin A1c (4.5-5.6) % Calcium (8.5-10.1) mg/dl COVID-19 Eval Order SARS-CoV-2, RNA, NAAT (NEGATIVE) 01/02/21 01/02/21 01/02/21 Range/Units 16:36 13:26 11:27 WBC (4.8-10.8) K/uL RBC (4.2-5.4) M/uL Hgb (12.0-16.0) g/dL Hct (37-47) % MCV (80-100) fL MCH (25-34) pg MCHC (32-36) g/dL RDW Std Deviation (36.4-46.3) fL RDW Coeff of Luci (11.5-14.5) % Plt Count (130-400) K/uL MPV (7.4-10.4) fL Immature Gran % (Auto) % Neut % (Auto) % Lymph % (Auto) % [place] % (Auto) % Eos % (Auto) % Baso % (Auto) % Neut # (Auto) (1.4-6.5) K/uL Lymph # (Auto) (1.2-3.4) K/uL [place] # (Auto) (0.11-0.59) K/uL Eos # (Auto) (0-0.5) K/uL Baso # (Auto) (0-0.2) K/uL Immature Gran # (Auto) (0.00-0.02) K/uL Sodium (136-145) mmol/L Potassium (3.5-5.1) mmol/L Chloride (98-107) mmol/L Carbon Dioxide (21-32) mmol/L Anion Gap (3-11) BUN (7-18) mg/dl Creatinine (0.6-1.2) mg/dl Est Cr Clr Drug Dosing ml/min Est GFR ( Amer) Est GFR (Non-Af Amer) BUN/Creatinine Ratio (10-20) Glucose (70-99) mg/dl POC Glucose 216 H 233 H 207 H (70-99) mg/dl Estimat Average Glucose mg/dl Hemoglobin A1c (4.5-5.6) % Calcium (8.5-10.1) mg/dl COVID-19 Eval Order SARS-CoV-2, RNA, NAAT (NEGATIVE) 01/02/21 01/02/21 01/02/21 Range/Units 08:32 08:13 08:13 WBC (4.8-10.8) K/uL RBC (4.2-5.4) M/uL Hgb (12.0-16.0) g/dL Hct (37-47) % MCV (80-100) fL MCH (25-34) pg MCHC (32-36) g/dL RDW Std Deviation (36.4-46.3) fL RDW Coeff of Luci (11.5-14.5) % Plt Count (130-400) K/uL MPV (7.4-10.4) fL Immature Gran % (Auto) % Neut % (Auto) % Lymph % (Auto) % [place] % (Auto) % Eos % (Auto) % Baso % (Auto) % Neut # (Auto) (1.4-6.5) K/uL Lymph # (Auto) (1.2-3.4) K/uL [place] # (Auto) (0.11-0.59) K/uL Eos # (Auto) (0-0.5) K/uL Baso # (Auto) (0-0.2) K/uL Immature Gran # (Auto) (0.00-0.02) K/uL Sodium (136-145) mmol/L Potassium (3.5-5.1) mmol/L Chloride (98-107) mmol/L Carbon Dioxide (21-32) mmol/L Anion Gap (3-11) BUN (7-18) mg/dl Creatinine (0.6-1.2) mg/dl Est Cr Clr Drug Dosing ml/min Est GFR ( Amer) Est GFR (Non-Af Amer) BUN/Creatinine Ratio (10-20) Glucose (70-99) mg/dl POC Glucose 139 H (70-99) mg/dl Estimat Average Glucose mg/dl Hemoglobin A1c (4.5-5.6) % Calcium (8.5-10.1) mg/dl COVID-19 Eval [facility] SARS-CoV-2, RNA, NAAT NEGATIVE (NEGATIVE) Medications Administered Current Inpatient Medications Acetaminophen (Acetaminophen 500 Mg Tab) 1,000 mg PO Q8H PRN PRN Reason: MILD Pain Scale 1,2,3 & Pre PT Stop: 02/01/21 13:03 Last Admin: 01/03/21 02:09 Dose: 1,000 mg Documented by: Al Hydrox/Mg Hydrox/Simethicone (Aluminum/Magnesium Susp 30 Ml Udc) 30 ml PO Q6H PRN PRN Reason: Dyspepsia Stop: 02/01/21 13:03 Aspirin (Aspirin 81 Mg Ectab) 81 mg PO QAM [facility] Stop: 02/02/21 08:59 Bisacodyl (Bisacodyl 10 Mg Supp) 10 mg RI DAILY PRN PRN Reason: Constipation Stop: 02/01/21 13:03 Calcium Carbonate (Calcium Carbonate 500 Mg Chewable Tab) 500 mg PO BID PRN PRN Reason: Acid Reflux Stop: 02/01/21 13:03 Dextrose (Dextrose 50% 50 Ml Syringe) 25 - 50 ml IV UD PRN; Protocol PRN Reason: Hypoglycemia Protocol Stop: 02/01/21 14:14 Diphenhydramine HCl (Diphenhydramine Capsule 25 Mg Cap) 25 mg PO Q6H PRN PRN Reason: Allergic Rhinitis/Insomnia Stop: 02/01/21 13:03 Famotidine (Famotidine 20 Mg Tab) 20 mg PO Q12H PRN PRN Reason: Dyspepsia Stop: 02/01/21 13:03 Glucagon (Glucagon For Inj 1 Mg Vial) 1 mg IM UD PRN; Protocol PRN Reason: Hypoglycemia Protocol Stop: 02/01/21 14:14 Glucose (Glucose 40% Gel 15 Gm Tube) 15 - 30 gm PO UD PRN; Protocol PRN Reason: Hypoglycemia Protocol Stop: 02/01/21 14:14 Glucose (Glucose 10 Tabs/Tube) 4 - 8 tabs PO UD PRN; Protocol PRN Reason: Hypoglycemia Protocol Stop: 02/01/21 14:14 Hydromorphone HCl (Hydromorphone Inj 0.5 Mg/0.5 Ml Syr) 0.5 mg IV Q3H PRN PRN Reason: MOD pain (scale 4-6) & Pre PT Stop: 01/16/21 13:03 Hydromorphone HCl (Hydromorphone Inj 1 Mg/Ml Syringe) 1 mg IV Q3H PRN PRN Reason: severe pain (scale 7-10) Stop: 01/16/21 13:03 Hydroxyzine HCl (Hydroxyzine Hcl 25 Mg Tab) 25 mg PO Q8H PRN PRN Reason: Anxiety Stop: 02/01/21 13:03 Lorazepam (Ativan) 0.5 mg in 1 mls @ 0.5 mls/min IV Q8H PRN PRN Reason: Sedation/Anxiety Stop: 02/01/21 13:03 Acetaminophen (Ofirmev) 1,000 mg in 100 mls @ 400 mls/hr IV Q8H PRN PRN Reason: MILD Pain Rating 1,2,3 Stop: 01/03/21 13:03 Promethazine HCl 12.5 mg/ (Sodium Chloride) 50.5 mls @ 204 mls/hr IV Q6H PRN PRN Reason: Nausea &/or Vomiting Stop: 02/01/21 13:03 Influenza Virus Vaccine Quadrival (Do Not Administer Flu Vaccine) 1 ea N/A PRN PRN PRN Reason: Notification Stop: 02/01/21 13:03 Insulin Aspart (Insulin Aspart 100 Units/Ml 3 Ml Pen) 0 units SC ACHS [facility] Stop: 02/01/21 16:29 Last Admin: 01/02/21 21:38 Dose: 6 units Documented by: Insulin Glargine (Insulin Glargine Solostar 100 Units/Ml 3 Ml Pen) 42 units SC HS [facility] Stop: 02/02/21 20:59 Levothyroxine Sodium (Levothyroxine Sodium 50 Mcg Tablet) 50 mcg PO DAILYBB [facility] Stop: 02/02/21 06:29 Last Admin: 01/03/21 05:40 Dose: 50 mcg Documented by: Lisinopril (Lisinopril 5 Mg Tab) 5 mg PO QAM [facility] Stop: 02/02/21 08:59 Lorazepam (Lorazepam 0.5 Mg Tab) 0.5 mg PO Q8H PRN PRN Reason: Sedation/Anxiety Stop: 02/01/21 13:03 Magnesium Hydroxide (Magnesium Hydroxide Susp 30 Ml Udc) 30 ml PO DAILY PRN PRN Reason: Constipation Stop: 02/01/21 13:03 Metoclopramide HCl (Metoclopramide Hcl Inj 5 Mg/Ml 2 Ml Vial) 10 mg IV Q6H PRN PRN Reason: Nausea &/or Vomiting Stop: 02/01/21 13:03 Metoprolol Tartrate (Metoprolol Tartrate 25 Mg Tab) 25 mg PO BID [facility] Stop: 02/01/21 20:59 Last Admin: 01/02/21 20:24 Dose: 25 mg Documented by: Miscellaneous (Carbohydrates For Hypoglycemia ) 15 - 30 gm PO UD PRN PRN Reason: Hypoglycemia Treatment Stop: 02/01/21 14:14 Miscellaneous Information (Pharmacy Glycemic Mgmt Consult) 1 ea N/A UD [facility] Stop: 02/01/21 14:11 Naloxone HCl (Naloxone Hcl 0.4 Mg/1 Ml Vial/Carp) 0.1 mg IV Q5M PRN; Protocol PRN Reason: Oversedation/Resp Depression Stop: 02/01/21 13:03 Ondansetron HCl (Ondansetron Inj 2 Mg/Ml 2 Ml Vial) 4 mg IV Q6H PRN PRN Reason: Nausea &/or Vomiting Stop: 02/01/21 13:03 Last Admin: 01/02/21 15:06 Dose: 4 mg Documented by: Ondansetron HCl (Ondansetron 4 Mg Od Tab) 4 mg PO Q6H PRN PRN Reason: Nausea Stop: 02/01/21 13:03 Oxycodone HCl (Oxycodone Hcl Ir 5 Mg Tab (Immediate Release)) 5 - 10 mg PO Q4H PRN PRN Reason: Moderate-Severe Pain & Pre PT Stop: 01/16/21 13:03 Last Admin: 01/03/21 08:00 Dose: 10 mg Documented by: Pneumococcal Polyvalent Vaccine (Do Not Administer Pneumococcal Vaccine) 1 ea N/A PRN PRN PRN Reason: Notification Stop: 02/01/21 13:03 Polyethylene Glycol (Polyethylene (Miralax) 17 Gm Pack) 17 gm PO Q6 [facility] Stop: 02/02/21 05:59 Last Admin: 01/03/21 05:40 Dose: 17 gm Documented by: Rosuvastatin Calcium (Rosuvastatin Calcium 10 Mg Tab) 10 mg PO QPM [facility] Stop: 02/01/21 20:59 Last Admin: 01/02/21 20:24 Dose: 10 mg Documented by: Senna/Docusate Sodium (Docusate Sodium/Senna 50/8.6mg Tab) 2 tab PO HS [facility] Stop: 02/01/21 20:59 Last Admin: 01/02/21 20:24 Dose: 2 tab Documented by: Sodium Biphosphate/Sodium Phosphate (Sod Phosphate/Sod Biphosphate Enema 132 Ml Btl) 132 ml RI ONE PRN PRN Reason: Constipation Stop: 02/01/21 13:03 Tramadol HCl (Tramadol Hcl 50 Mg Tablet) 50 - 100 mg PO Q4H PRN PRN Reason: Moderate-Severe Pain & Pre PT Stop: 02/01/21 13:03 Vitamin D (Cholecalciferol 1,000 Units 25 Mcg Tab) 2,000 units PO QAM [facility] Stop: 02/02/21 08:59
[2021-01-03] MEDS: METOPROLOL TARTRATE 25 MG TAB PO SCH ×2 (08:32→21:45)
[2021-01-03] MEDS: CHOLECALCIFEROL 1,000 UNITS 25 MCG TAB PO SCH (08:32)
[2021-01-03] MEDS: ASPIRIN 81 MG ECTAB PO SCH (08:32)
[2021-01-03] MEDS: lisinopril 5 MG TAB PO SCH (08:32)
[2021-01-03] MEDS: INSULIN ASPART 100 UNITS/ML 3 ML PEN SC SCH ×4 (08:33→21:48)
--- NOTE | 2021-01-03 09:13 | Pharmacy Report ---
Pharmacy Glycemic Short Note 2 - Date of Service January 03, 2021 - Glycemic Short BSG Results (Last 24 hours): 01/02/21 01/02/21 01/02/21 11:27 13:26 16:36 Glucose POC Glucose 207 H 233 H 216 H 01/02/21 01/03/21 01/03/21 20:46 01:55 05:47 Glucose 132 H POC Glucose 216 H 151 H 01/03/21 08:01 Glucose POC Glucose 125 H OUTPATIENT ANTIDIABETIC REGIMEN: * Lantus 42 units Q HS * Novolog 2 units per 15 grams consumed, ~15 units per meal * A1c = 7.1% on 01/02/21 ASSESSMENT: 01/03/21 * Pt has received 86 units of insulin over the past 24hrs * 40 units of basal with Lantus * 22 units of NPH for steroid induced hyperglycemia * 24 units of bolus with NovoLog * BSGs [phone] mg/dl * AM fasting BSG is in goal range this morning at 125 mg/dl. Pt also has 22 units of NPH on board for steroid induced hyperglycemia from DXM given intraoperatively. Steroids are not continued today- will DC NPH and then increase Lantus back to outpatient dosing of 42 units HS. * CF/CR dosing is similar to outpatient regimen. No changes needed * A1c is in goal range- no changes needed to outpatient regimen. * Goal is to maintain BSGs <180 (ideally <150) to prevent post-op infectious complications. 01/02/21 * Type 2 diabetic, admitted for lumbar decompression / fusion * Patient did receive dexamethasone 4mg IV bronson-op * BSGs did climb following surgery into the 200s * Will administer NPH ~0.3units/kg SQ x 1 STAT to combat steroid induced hyperglycemia * Lantus will continue at dose near equivalent to outpt requirement * Novolog CF and CR will be based upon out-pt regimen PLAN FOR INPATIENT GLYCEMIC CONTROL: * Hold outpatient oral diabetes medications * Basal insulin * Lantus 42 units SQ Q HS * DC NPH - no more DXM given * Bolus insulin * NovoLog per scale ACHS and at 0200 tonight * Goal Range: Low 110 mg/dL - High 140 mg/dL * Correction Factor: 15 mg/dL/unit * Nutritional / Prandial insulin per carb ratio of 1 unit per 5 grams CHO consumed PLAN FOR DISCHARGE: * A1c is in goal range at 7.1% on 01/02/21- no changes needed to outpatient regimen.
[2021-01-03] MEDS ORDERED: MECLIZINE 12.5 MG TAB PO PRN (10:26)
[2021-01-03] MEDS ORDERED: CYCLOBENZAPRINE HCL 10 MG TAB PO PRN (15:01)
--- NOTE | 2021-01-03 15:03 | Orthopedic Progress Note ---
Date of Service January 03, 2021 Assessment & Plan (1) Lumbar stenosis with neurogenic claudication: Admission and Anticipated Discharge Date Admission Date: January 02, 2021 At this time we will continue physical therapy monitor JIMBO output hopefully discharge home in next few days. Subjective Back pain controlled leg pain markedly improved Physical Exam Physical Exam: Patient is in a chair at the bedside. Is good strength testing. Appears comfortable. Results & Data ([facility]) Vital Signs (Past 12 Hours) Vital Signs Temp Pulse Resp BP BP Pulse Ox 01/03/21 14:49 36.7 C 69 16 130/61 94 01/03/21 12:12 72 16 145/65 H 97 01/03/21 11:06 36.8 C 63 16 172/67 H 96 01/03/21 07:23 36.6 C 61 16 145/65 H 95
[2021-01-03 18:19] LABS: Hematocrit (blood only) 31.2 % (37-47); Hemoglobin 10.5 g/dL (12.0-16.0)
[2021-01-03] MEDS: ROSUVASTATIN CALCIUM 10 MG TAB PO SCH (21:45)
[2021-01-03] MEDS: DOCUSATE SODIUM/SENNA 50/8.6MG TAB PO SCH (21:45)
[2021-01-03] MEDS: INSULIN GLARGINE SOLOSTAR 100 UNITS/ML 3 ML PEN SC SCH (21:49)
[2021-01-04] MEDS: POLYETHYLENE (MIRALAX) 17 GM PACK PO SCH ×2 (06:03→12:04)
[2021-01-04] MEDS: LEVOTHYROXINE SODIUM 50 MCG TABLET PO SCH (06:05)
[2021-01-04] MEDS: oxyCODONE HCL IR 5 MG TAB (IMMEDIATE RELEASE) PO PRN ×3 (06:08→21:33)
[2021-01-04 06:50] LABS: Hematocrit (blood only) 31.9 % (37-47); Hemoglobin 10.7 g/dL (12.0-16.0); Mean Corpuscular Hemoglobin 30.7 pg (25-34); Mean Corpuscular Hgb Conc 33.5 g/dL (32-36); Mean Corpuscular Volume 91.7 fL (80-100); Mean Platelet Volume 9.4 fL (7.4-10.4); Platelet Count 161 K/uL (130-400); RDW Coefficient of Variation 13.1 % (11.5-14.5); RDW Standard Deviation 43.8 fL (36.4-46.3); Red Blood Count 3.48 M/uL (4.2-5.4); White Blood Count 5.36 K/uL (4.8-10.8)
[2021-01-04 07:22] LABS: BUN Creatinine Ratio 21.1 (10-20); Creatinine Clr Calc Pharmacy 72.7 ml/min; Est GFR (Non-African American) 90.6; Magnesium 1.9 mg/dl (1.8-2.4); Potassium 4.1 mmol/L (3.5-5.1)
[2021-01-04 07:23] LABS: Phosphorus 1.6 mg/dl (2.5-4.9)
[2021-01-04] MEDS: lisinopril 5 MG TAB PO SCH (07:51)
[2021-01-04] MEDS: CHOLECALCIFEROL 1,000 UNITS 25 MCG TAB PO SCH (07:52)
[2021-01-04] MEDS: METOPROLOL TARTRATE 25 MG TAB PO SCH ×2 (07:52→21:34)
[2021-01-04] MEDS: dexAMETHasone 8 MG in SYRINGE 0 ML IV SCH (07:52)
[2021-01-04] MEDS: INSULIN ASPART 100 UNITS/ML 3 ML PEN SC SCH ×4 (07:54→21:37)
--- NOTE | 2021-01-04 08:33 | Pharmacy Report ---
Pharmacy Glycemic Short Note 2 - Date of Service January 04, 2021 - Glycemic Short BSG Results (Last 24 hours): 01/03/21 01/03/21 01/03/21 12:07 17:12 21:00 Glucose POC Glucose 99 186 H 170 H 01/04/21 01/04/21 06:25 06:40 Glucose 181 H POC Glucose 173 H OUTPATIENT ANTIDIABETIC REGIMEN: * Lantus 42 units Q HS * Novolog 2 units per 15 grams consumed, ~15 units per meal * A1c = 7.1% on 01/02/21 ASSESSMENT: 01/04/21: * 63 units SQ insulin given over last 24 hrs while tolerating a diet * Fasting BSG elevated this AM with 42 units Lantus on board (FBS = 173) - will be adding NPH today * Post-prandial BSGs fairly well controlled yesterday with current Novolog CF / CR * Dexamethasone 8mg IV daily starting this AM, will add 0.4unit/kg NPH daily with dexamethasone to combat steroid induced hyperglycemia, will also increase prandial insulin dose by adjusting CR 01/03/21 * Pt has received 86 units of insulin over the past 24hrs * 40 units of basal with Lantus * 22 units of NPH for steroid induced hyperglycemia * 24 units of bolus with NovoLog * BSGs [phone] mg/dl * AM fasting BSG is in goal range this morning at 125 mg/dl. Pt also has 22 units of NPH on board for steroid induced hyperglycemia from DXM given intraoperatively. Steroids are not continued today- will DC NPH and then increase Lantus back to outpatient dosing of 42 units HS. * CF/CR dosing is similar to outpatient regimen. No changes needed * A1c is in goal range- no changes needed to outpatient regimen. * Goal is to maintain BSGs <180 (ideally <150) to prevent post-op infectious complications. 01/02/21 * Type 2 diabetic, admitted for lumbar decompression / fusion * Patient did receive dexamethasone 4mg IV bronson-op * BSGs did climb following surgery into the 200s * Will administer NPH ~0.3units/kg SQ x 1 STAT to combat steroid induced hyperglycemia * Lantus will continue at dose near equivalent to outpt requirement * Novolog CF and CR will be based upon out-pt regimen PLAN FOR INPATIENT GLYCEMIC CONTROL: * Hold outpatient oral diabetes medications * Basal insulin - increase by adding NPH * Lantus 42 units SQ Q HS * NPH 29 units (~0.4unit/kg) Q AM w/ IV dexamethasone 8mg * Bolus insulin * NovoLog per scale ACHS * Goal Range: Low 110 mg/dL - High 140 mg/dL * Correction Factor: 15 mg/dL/unit * Nutritional / Prandial insulin per carb ratio of 1 unit per 4 grams CHO consumed PLAN FOR DISCHARGE: * A1c is in goal range at 7.1% on 01/02/21- no changes needed to outpatient regimen.
[2021-01-04] MEDS ORDERED: NovoLIN-N (NPH) PER UNIT CHARGE SQ SCH (09:00)
--- NOTE | 2021-01-04 09:02 | Hospitalist Progress Note ---
Date of Service January 04, 2021 Assessment & Plan (1) S/P spinal surgery: This is a 70-year-old female with PMH of type 2 diabetes, CAD status post LANA x 3 in Jun 2020 at [facility], hypothyroidism and other medical problems listed below who is POD#2 s/p removal of posterior instrumentation L3-L4, lumbar decompression with bilateral medial facetectomies and foraminotomies L1-2 and L2-3 and posterior spinal fusion L2-[address] Murillo. Per ortho for pain control, wound care, anticoagulation and activities Continue incentive spirometry, PT/OT when appropriate Monitor H&H Acute blood loss anemia and dilutional anemia Hgb 10.7, pre-op 13.8 - cont. to closely monitor - no need for blood transfusion at this time Vertigo -Patient reports history of vertigo for past 20 years -It helps her if she lays on her side or does not look up too fast -Takes meclizine as needed, but usually at night -We will provide meclizine as needed for the patient Hypophosphatemia replace (2) CAD (coronary artery disease): Follows with Dr. Haskins at [facility] Had LANA x 3 placed in June 2020 Brilinta held for 3 days preoperatively by historic interpreter with instructions for resuming medication as soon as possible per surgeon post-operatively (3) Diabetes mellitus, type 2: Hold home agents SSI while in-patient Glycemic consult placed by primary service BSG AC HS appreciate glycemic management - elevated fbs and starting IV decadron today, insulin increased (4) Hypothyroidism: Continue levothyroxine PCP: Angel Dispo: Per ortho service Pt was seen and examined in collaboration with Dr. Hooks, please see addendum Thank you for this consultation. We will follow the patient with you during their hospital stay. You can reach a member of the [facility] Hospitalist Team 25/03 via hospitalist role on tiger text. Admission and Anticipated Discharge Date Admission Date: January 02, 2021 Supervising Physician Co-Signing Physician Notes Patient is seen and examined in bedside. Back pain at surgical site is con trolled. Dizziness improved. + Flatus, no bowel movement yet. Denies chest pain, dyspnea. Offers no other complaints. On exam patient is moderately built and nourished, no apparent distress, normocephalic atraumatic, lungs-normal breath sounds, clear to auscultation, S1-S2, no murmur, no pedal edema, abdomen soft, nontender, normal bowel sounds, alert, awake, oriented, grossly no focal deficits,Back-surgical site in dressing,+ drain. Monitor CBC for postop anemia. No indication for blood transfusion currently. Replace phosphorus for hypophosphatemia. Continue insulin therapy for diabetic management. Plan to resume Brilinta for CAD if okay with surgery. I personally reviewed the record. Patient is interviewed and examined at bedside. Patient's care is coordinated with Destinee Clarke PA-C. Please refer to the documentation above for details of patient's presentation and for discussion of other issues. Subjective Pt seen and examined in room 319-1. Follow up lumbar surgery, vertigo, HTN. Feels improved this morning, but at 0630 has significant back pain. This has improved with analgesia. Just finished with PT and ambulated around unit. Denies f/c/s, dizziness, lightheaded, chest pain, sob, n/v/d. Passing flatus but no BM yet. Appetite is good. Continues to have fernandez due to vertigo yesterday. Vertigo has improved and did not need to take meclizine. She states she normally gets vertigo when she lies down or head quick head movements. Also meds can occassionally exacerbate it. Review of Systems Review of Systems: All systems reviewed & are unremarkable except as noted in HPI & below Physical Exam Physical Exam: Gen: WD/WN, F, NAD, A&O x3 HEENT: Normocephalic, atraumatic, conjunctivae moist, sclerae anicteric, mucous membranes moist. Lung: Clear to Auscultation bilaterally, no wheezes/rales/rhonchi Heart: Regular rate, regular rhythm, no murmurs, rubs, or gallops Abdomen: Soft, NT, ND +BS x 4 Extremities: No edema, JIMBO drain with serosang drainage Skin: Warm, no rash, negative turgor. Results & Data Results & Data ([facility]) Vital Signs (Past 12 Hours) Vital Signs Temp Pulse Pulse Resp BP BP Pulse Ox 01/04/21 06:45 36.6 C 65 16 119/62 97 01/03/21 23:41 36.8 C 71 15 128/65 92 01/03/21 21:42 69 133/64 Laboratory Results Short CBC 01/03/21 01/04/21 Range/Units 18:07 06:25 WBC 5.36 (4.8-10.8) K/uL Hgb 10.5 L 10.7 L (12.0-16.0) g/dL Hct 31.2 L 31.9 L (37-47) % Plt Count 161 (130-400) K/uL BMP 01/04/21 06:25 Sodium 137 Potassium 4.1 Chloride 106 Carbon Dioxide 30 BUN 14 Creatinine 0.65 Glucose 181 H Calcium 8.0 L Medications Administered Acetaminophen (Acetaminophen 500 Mg Tab) 1,000 mg PO Q8H PRN PRN Reason: MILD Pain Scale 1,2,3 & Pre PT Stop: 02/01/21 13:03 Last Admin: 01/03/21 23:45 Dose: 500 mg Documented by: [id number] Admin: 01/03/21 02:09 Dose: 1,000 mg Documented by: [id number] Aspirin (Aspirin 81 Mg Ectab) 81 mg PO QAM [facility] Stop: 02/02/21 08:59 Last Admin: 01/03/21 08:32 Dose: 81 mg Documented by: [id number] Dexamethasone 8 mg/ Syringe 2 mls @ 1 mls/min IV DAILY [facility] Stop: 02/03/21 08:59 Last Admin: 01/04/21 07:52 Dose: 1 mls/min Documented by: [id number] Insulin Aspart (Insulin Aspart 100 Units/Ml 3 Ml Pen) 0 units SC ACHS [facility] Stop: 02/01/21 16:29 Last Admin: 01/04/21 07:54 Dose: 7 units Documented by: [id number] Cosigned by: [id number] Admin: 01/03/21 21:48 Dose: 2 units Documented by: [id number] Cosigned by: [id number] Admin: 01/03/21 17:29 Dose: 9 units Documented by: [id number] Cosigned by: [id number] Admin: 01/03/21 12:34 Dose: 3 units Documented by: [id number] Cosigned by: [id number] Admin: 01/03/21 08:33 Dose: 6 units Documented by: [id number] Cosigned by: [id number] Admin: 01/02/21 21:38 Dose: 6 units Documented by: [id number] Cosigned by: [id number] Admin: 01/02/21 17:59 Dose: 11 units Documented by: [id number] Cosigned by: [id number] Insulin Glargine (Insulin Glargine Solostar 100 Units/Ml 3 Ml Pen) 42 units SC HS [facility] Stop: 02/02/21 20:59 Last Admin: 01/03/21 21:49 Dose: 42 units Documented by: [id number] Cosigned by: [id number] Insulin Human NPH (Novolin-N (Nph) Per Unit Charge) 29 units SQ TODAY@0900 [facility] Stop: 01/04/21 09:01 Last Admin: 01/04/21 07:57 Dose: 29 units Documented by: [id number] Cosigned by: [id number] Levothyroxine Sodium (Levothyroxine Sodium 50 Mcg Tablet) 50 mcg PO DAILYBB [facility] Stop: 02/02/21 06:29 Last Admin: 01/04/21 06:05 Dose: 50 mcg Documented by: [id number] Admin: 01/03/21 05:40 Dose: 50 mcg Documented by: [id number] Lisinopril (Lisinopril 5 Mg Tab) 5 mg PO QAM [facility] Stop: 02/02/21 08:59 Last Admin: 01/04/21 07:51 Dose: 5 mg Documented by: [id number] Admin: 01/03/21 08:32 Dose: 5 mg Documented by: [id number] Metoprolol Tartrate (Metoprolol Tartrate 25 Mg Tab) 25 mg PO BID [facility] Stop: 02/01/21 20:59 Last Admin: 01/04/21 07:52 Dose: 25 mg Documented by: [id number] Admin: 01/03/21 21:45 Dose: 25 mg Documented by: [id number] Admin: 01/03/21 08:32 Dose: 25 mg Documented by: [id number] Admin: 01/02/21 20:24 Dose: 25 mg Documented by: [id number] Ondansetron HCl (Ondansetron Inj 2 Mg/Ml 2 Ml Vial) 4 mg IV Q6H PRN PRN Reason: Nausea &/or Vomiting Stop: 02/01/21 13:03 Last Admin: 01/02/21 15:06 Dose: 4 mg Documented by: [id number] Oxycodone HCl (Oxycodone Hcl Ir 5 Mg Tab (Immediate Release)) 5 - 10 mg PO Q4H PRN PRN Reason: Moderate-Severe Pain & Pre PT Stop: 01/16/21 13:03 Last Admin: 01/04/21 06:08 Dose: 5 mg Documented by: [id number] Admin: 01/03/21 19:31 Dose: 5 mg Documented by: [id number] Admin: 01/03/21 08:00 Dose: 10 mg Documented by: [id number] Admin: 01/02/21 18:04 Dose: 10 mg Documented by: [id number] Polyethylene Glycol (Polyethylene (Miralax) 17 Gm Pack) 17 gm PO Q6 IVON Stop: 02/02/21 05:59 Last Admin: 01/04/21 06:03 Dose: 17 gm Documented by: [id number] Admin: 01/03/21 23:40 Dose: 17 gm Documented by: [id number] Admin: 01/03/21 17:31 Dose: 17 gm Documented by: [id number] Admin: 01/03/21 12:14 Dose: 17 gm Documented by: [id number] Admin: 01/03/21 05:40 Dose: 17 gm Documented by: [id number] Rosuvastatin Calcium (Rosuvastatin Calcium 10 Mg Tab) 10 mg PO QPM IVON Stop: 02/01/21 20:59 Last Admin: 01/03/21 21:45 Dose: 10 mg Documented by: [id number] Admin: 01/02/21 20:24 Dose: 10 mg Documented by: [id number] Senna/Docusate Sodium (Docusate Sodium/Senna 50/8.6mg Tab) 2 tab PO HS IVON Stop: 02/01/21 20:59 Last Admin: 01/03/21 21:45 Dose: 2 tab Documented by: [id number] Admin: 01/02/21 20:24 Dose: 2 tab Documented by: [id number] Tramadol HCl (Tramadol Hcl 50 Mg Tablet) 50 - 100 mg PO Q4H PRN PRN Reason: Moderate-Severe Pain & Pre PT Stop: 02/01/21 13:03 Last Admin: 01/03/21 17:35 Dose: 50 mg Documented by: [id number] Vitamin D (Cholecalciferol 1,000 Units 25 Mcg Tab) 2,000 units PO QAM IVON Stop: 02/02/21 08:59 Last Admin: 01/04/21 07:52 Dose: 2,000 units Documented by: [id number] Admin: 01/03/21 08:32 Dose: 2,000 units Documented by: [id number] Discontinued Medications Acetaminophen (Acetaminophen 500 Mg Tab) 1,000 mg PO PREOP IVON Stop: 01/02/21 18:00 Last Admin: 01/02/21 08:31 Dose: 1,000 mg Documented by: [id number] Bupivacaine HCl/Epinephrine Bitart (Bupivacaine/Epinephrine 0.5% Mpf 1:200,000 30 Ml Vial) Confirm Administered Dose 30 ml .ROUTE .STK-MED ONE Stop: 01/02/21 08:56 Last Admin: 01/02/21 10:15 Dose: 20 ml Documented by: [id number] Cefazolin Sodium (Cefazolin 250 Mg/Ml 1 Gm Vial) Confirm Administered Dose 1,000 mg .ROUTE .STK-MED ONE Stop: 01/02/21 08:56 Last Admin: 01/02/21 10:16 Dose: 1,000 mg Documented by: [id number] Celecoxib (Celebrex 200 Mg Cap) 200 mg PO PREOP IVON Stop: 01/02/21 18:00 Last Admin: 01/02/21 08:33 Dose: 200 mg Documented by: [id number] Gabapentin (Gabapentin 600 Mg Dose) 600 mg PO PREOP IVON Stop: 01/02/21 18:00 Last Admin: 01/02/21 08:41 Dose: Not Given Documented by: [id number] Gabapentin (Gabapentin 300 Mg Cap) 300 mg PO PREOP IVON Stop: 01/02/21 18:00 Last Admin: 01/02/21 08:41 Dose: 300 mg Documented by: [id number] Hydromorphone HCl (Hydromorphone Inj 1 Mg/Ml Syringe) 0.25 mg IV Q5M PRN PRN Reason: PACU Use Only-Pain Stop: 01/02/21 16:58 Last Admin: 01/02/21 12:13 Dose: 0.25 mg Documented by: [id number] Admin: 01/02/21 12:08 Dose: 0.25 mg Documented by: [id number] Admin: 01/02/21 12:03 Dose: 0.25 mg Documented by: [id number] Admin: 01/02/21 11:53 Dose: 0.25 mg Documented by: [id number] Admin: 01/02/21 11:48 Dose: 0.25 mg Documented by: [id number] Admin: 01/02/21 11:43 Dose: 0.25 mg Documented by: [id number] Admin: 01/02/21 11:38 Dose: 0.25 mg Documented by: [id number] Cefazolin Sodium (Ancef 1000mg) 1,000 mg in 7.5 mls @ 2.5 mls/min IV PREOP IVON; Protocol Stop: 01/02/21 18:00 Last Admin: 01/02/21 09:25 Dose: 2.5 mls/min Documented by: [id number] Lactated Ringer's (Lr) 1,000 mls @ 15 mls/hr IV .Q24H IVON Stop: 12/30/20 05:59 Last Infusion: 01/02/21 19:42 Dose: 0 mls/hr Documented by: [id number] Admin: 01/02/21 09:24 Dose: 15 mls/hr Documented by: [id number] Sodium Chloride (Nss 1000ml) 1,000 mls @ 100 mls/hr IV .Q10H IVON Stop: 02/01/21 13:59 Last Infusion: 01/03/21 05:41 Dose: 0 mls/hr Documented by: [id number] Admin: 01/02/21 23:38 Dose: 100 mls/hr Documented by: [id number] Infusion: 01/02/21 23:38 Dose: 100 mls/hr Documented by: [id number] Admin: 01/02/21 13:49 Dose: 100 mls/hr Documented by: [id number] Cefazolin Sodium (Ancef 2000mg) 2,000 mg in 15 mls @ 3.75 mls/min IV Q8H IVON; Protocol Stop: 01/03/21 02:03 Last Admin: 01/03/21 02:09 Dose: 3.75 mls/min Documented by: [id number] Admin: 01/02/21 18:27 Dose: 3.75 mls/min Documented by: [id number] Insulin Aspart (Insulin Aspart 100 Units/Ml 3 Ml Pen) 0 units SC .EXTRA DOSE ONE Stop: 01/02/21 14:16 Last Admin: 01/02/21 15:02 Dose: 7 units Documented by: [id number] Cosigned by: [id number] Insulin Aspart (Insulin Aspart 100 Units/Ml 3 Ml Pen) 0 units SC TODAY@0200 IVON Stop: 02/02/21 01:59 Last Admin: 01/03/21 02:10 Dose: 1 units Documented by: [id number] Cosigned by: [id number] Insulin Glargine (Insulin Glargine Solostar 100 Units/Ml 3 Ml Pen) 40 units SC HS IVON Stop: 02/01/21 20:59 Last Admin: 01/02/21 21:38 Dose: 40 units Documented by: [id number] Cosigned by: [id number] Insulin Human NPH (Novolin-N (Nph) Per Unit Charge) 22 units SQ NOW ONE Stop: 01/02/21 14:16 Last Admin: 01/02/21 15:02 Dose: 22 units Documented by: [id number] Cosigned by: [id number] Miscellaneous ( Floseal Hemostatic Matrix 10ml) 30 ml TOP ONCE ONE Stop: 01/02/21 11:02 Last Admin: 01/02/21 11:01 Dose: 22 ml Documented by: [id number]
[2021-01-04] MEDS: ASPIRIN 81 MG ECTAB PO SCH (09:15)
[2021-01-04] MEDS ORDERED: POTASSIUM PHOS 3 MMOL/1 ML INFUSION IV STA (10:07)
[2021-01-04] MEDS ORDERED: POTASSIUM PHOSPHATE 9 MMOL in SODIUM CHLORIDE 0.9% 250 ML IV ONE (10:30)
--- NOTE | 2021-01-04 12:56 | Orthopedic Progress Note ---
Date of Service January 04, 2021 Assessment & Plan (1) Lumbar stenosis with neurogenic claudication: Admission and Anticipated Discharge Date Admission Date: January 02, 2021 This time continue physical therapy monitor JIMBO output anticipate discharge home tomorrow. Subjective Back pain controlled leg pain markedly improved Physical Exam Physical Exam: On exam she is ambulating well is good strength testing. Results & Data ([facility]) Vital Signs (Past 12 Hours) Vital Signs Temp Pulse Resp BP Pulse Ox 01/04/21 06:45 36.6 C 65 16 119/62 97
[2021-01-04] MEDS: DOCUSATE SODIUM/SENNA 50/8.6MG TAB PO SCH (21:33)
[2021-01-04] MEDS: ROSUVASTATIN CALCIUM 10 MG TAB PO SCH (21:34)
[2021-01-04] MEDS: INSULIN GLARGINE SOLOSTAR 100 UNITS/ML 3 ML PEN SC SCH (21:38)
[2021-01-05] MEDS: oxyCODONE HCL IR 5 MG TAB (IMMEDIATE RELEASE) PO PRN ×2 (03:02→07:34)
[2021-01-05 05:49] LABS: Hematocrit (blood only) 32.7 % (37-47); Hemoglobin 10.9 g/dL (12.0-16.0); Mean Corpuscular Hemoglobin 30.5 pg (25-34); Mean Corpuscular Hgb Conc 33.3 g/dL (32-36); Mean Corpuscular Volume 91.6 fL (80-100); Mean Platelet Volume 9.7 fL (7.4-10.4); Platelet Count 197 K/uL (130-400); RDW Standard Deviation 42.8 fL (36.4-46.3); Red Blood Count 3.57 M/uL (4.2-5.4); White Blood Count 6.34 K/uL (4.8-10.8)
[2021-01-05] MEDS: LEVOTHYROXINE SODIUM 50 MCG TABLET PO SCH (06:10)
[2021-01-05 06:45] LABS: BUN Creatinine Ratio 19.5 (10-20); Calcium 8.5 mg/dl (8.5-10.1); Creatinine Clr Calc Pharmacy 71.6 ml/min; Est GFR (African American) 104.5; Est GFR (Non-African American) 90.1; Phosphorus 2.8 mg/dl (2.5-4.9); Potassium 4.1 mmol/L (3.5-5.1)
[2021-01-05] MEDS: dexAMETHasone 8 MG in SYRINGE 0 ML IV SCH (07:34)
[2021-01-05] MEDS: METOPROLOL TARTRATE 25 MG TAB PO SCH (07:34)
[2021-01-05] MEDS: CHOLECALCIFEROL 1,000 UNITS 25 MCG TAB PO SCH (07:35)
[2021-01-05] MEDS: lisinopril 5 MG TAB PO SCH (07:35)
[2021-01-05] MEDS: ASPIRIN 81 MG ECTAB PO SCH (07:35)
[2021-01-05] MEDS: INSULIN ASPART 100 UNITS/ML 3 ML PEN SC SCH (07:38)
[2021-01-05] MEDS ORDERED: NovoLIN-N (NPH) PER UNIT CHARGE SQ SCH (09:00)
--- NOTE | 2021-01-05 10:24 | Discharge Summary ---
Date of Service January 05, 2021 Admission HPI Per Admitting Provider This is a 70-year-old female known to me the presents marked clinical status. She does have evidence of severe spinal stenosis L2-L3 and is here for surgical invention. Principal Diagnosis Lumbar spinal stenosis with radiculopathy Discharge Data Allergies Allergy/AdvReac Type Severity Reaction Status Date / Time caffeine Allergy Unknown HEART RACES Verified 01/02/21 08:59 cat dander Allergy Unknown CAT/DOG Verified 01/02/21 08:59 DANDER-THROATS CLOSES No Known Drug Allergies Allergy Unknown NONE Verified 01/02/21 08:59 Consultations 01/02/21 13:04 Consult Hospitalist Routine Procedures Performed Operation Date: 01/02/21 09:35 Actual Procedures p L2-L3 Decompression and Fusion with Insertion of Interbody, Application of Bone Morphogenetic Protein, Spinal Cord Monitoring(Not Applicable) - Alan Murillo DO s L3-L4 Hardware Removal(Not Applicable) - Alan Murillo DO Ordered Studies 01/02/21 09:35 FL lumbar spine 2-3V Routine Hospital Course (1) Lumbar stenosis with neurogenic claudication: Patient with lumbar decompression fusion tolerated well was taken to orthopedic for possibly. Postop day 1 she was up and up and ambulating progressed to postop day #2 on postop day #3 pain was well controlled JIMBO drain decreased probably. Subsequently discharged home. Discharge orders instructions from the chart for further review. Total Time Total Time Spent Total Time Spent (In Minutes): 20 minutes Discharge Plan Discharge Items Patient Disposition: Home - Self-Care Reason For Visit: Spinal Stenosis Neurogenic Claudication Discharge Diagnosis: Lumbar spinal stenosis with neurogenic claudication Activity: As commented below Non-emergency contact: Primary Care Provider Call non-emergency contact if: you have any medication questions Follow-up/Referrals: Jose A Ortiz M.D. [Primary Care Provider] - Diet: Regular Addtl Attending Provider Instructions: ACTIVITY RECOMMENDATIONS: SELF CARE INSTRUCTIONS AFTER THORACIC/LUMBAR FUSIONS 1. You may walk to your tolerance. It is good exercise for your legs and back. Expect some back and intermittent leg aches and pains. 2. You may perform "counter-top" level activities (make a sandwich, lizabeth with a project, etc.). 3. No bending or lifting of more than 10 pounds or back twisting of any nature (roll like a log when turning in bed). 4. You may ride in a car for 20-30 minutes at a time. No driving until after your first visit with your doctor. 5. Frequent changes of position and restricting sitting to 30 minutes at a time will help limit the amount of back spasms and stiffness you may experience. 6. You may discontinue the use of ambulatory aids (cane, crutches, etc.) once your strength and confidence allow. 7. You may cold mill inspector the shower and let water strike your incision when you arrive home at least once daily. Do not take a tub bath, sit in a hot tub or go into a swimming pool until after your first recheck in the office. SPECIAL CARE INSTRUCTIONS: VERY IMPORTANT TO READ AND REVIEW A. Your surgical incision has been closed with a cosmetic suture under the skin that will dissolve in about 6 weeks. In 14 days, you can use a pair of clean scissors and cut the suture that is left outside of the skin at the ends of your incision. 1. The small skin tapes can be removed 7 days after surgery if they have not fallen off by that point. 2. You may keep the wound open to air as much as possible to promote healing after post-op day number 5 unless told otherwise by your doctor. 3. If you think the wound looks like it is becoming infected (redness or worsening drainage) and/or you are experiencing fever, chill or worsening back pain and muscle spasms, contact the office so that we may evaluate you as soon as possible. B. Complications are uncommon, but please contact us if you have any signs or symptoms of: 1. wound infection (fever higher than 102.5 degrees F, redness, separation of wound, drainage, or increasing pain from the incision) 2. blood clots in legs (pain, swelling, redness and warmth in legs) 3. urinary tract infection (fever higher than 102.5 degrees F, burning upon urination or increased frequency of urination) 4. nerve problems (inability to walk on your toes or heels, numbness, loss of bowel or bladder control) 5. any other symptoms that concern you C. Please call the office at if you have any concerns or questions about your operation or recovery. D. No smoking! Smoking drastically decreases the chance of a solid fusion. E. Do not take any anti-inflammatory medications (Indocin, Advil, Motrin, Aspirin, Naprosyn, etc.) as these may inhibit the chance of a solid fusion. Tylenol is okay to take for pain. MANAGING PAIN AFTER SPINAL SURGERY 1. Narcotic medication is intended for short-term use and will be provided for surgical pain. Surgical pain usually lasts for a period of 4-6 weeks. Narcotic medication includes Percocet, Vicodin, Darvocet, Tylenol #3 or Lortab. 2. Longer-term pain is more appropriately treated with non-narcotic medication such as Tylenol ES. 3. Muscle spasm is not appropriately treated with narcotics. Muscle relaxers such as Soma, Flexeril or Skelaxin can be used along with Tylenol ES. 4. Remember that we all live with some "aches and pains". This is not unusual or uncommon after an injury or as we get older. a. Back pain is expected and may include muscle spasms for 4 to 6 weeks after surgery. The pain should gradually improve. If the pain worsens for no apparent reason, please contact the office. b. Intermittent leg pain may also be experienced and should not be concerned about unless it worsens for no apparent reason. If so, please contact the office. 5. We will provide appropriate medication within the normal guidelines of their prescribed use. We will also be very cautious and aware of potential abuse and extended duration of patients' medication needs. a. Pain medications are for your comfort and to assist with sleep and rest so that the tissue can heal. They are not provided in order to return to normal activity and should not be used through the day. To do so or worsening pain at night can result from ongoing tissue damage and development of tolerance to the prescribed medicine. 6. Please allow 2-3 days to process refills. Prescriptions will not be mailed but must be picked up at the office. FOLLOW UP VISIT: Keep your scheduled follow-up appointment. Any questions, please call the office at . Pending Studies at Discharge: No Stand-Alone Forms: [facility], Opioid Pain Management, Smoking Cessation Medications and DC Order Prescriptions: New oxycodone 5 mg tablet 5 mg PO Q6H PRN (Reason: pain, severe) Qty: 30 RF: 0 tramadol 50 mg tablet 50 mg PO Q6H PRN (Reason: pain, moderate) Qty: 30 RF: 0 cyclobenzaprine 10 mg Tablet 10 mg PO Q8 Qty: 12 RF: 0 Continued aspirin 81 mg Tablet,Delayed Release (Dr/Ec) 81 mg PO QAM RF: 0 insulin aspart U-100 [Novolog U-100 Insulin aspart] 100 unit/mL Solution 1 sliding scale dose SUBCUT TIDM RF: 0 levothyroxine 50 mcg Tablet 50 mcg PO QAM RF: 0 lisinopril 5 mg Tablet 5 mg PO QAM RF: 0 rosuvastatin [Crestor] 10 mg Tablet 10 mg PO QPM RF: 0 metoprolol tartrate 25 mg Tablet 25 mg PO BID RF: 0 cholecalciferol (vitamin D3) [Vitamin D3] 50 mcg (2,000 unit) Capsule 50 mcg PO QAM RF: 0 Brilinta 90 mg Tablet 90 mg PO BID RF: 0 meclizine 25 mg Tablet 12.5 - 25 mg PO DAILY PRN (Reason: Vertigo) RF: 0 calcium carbonate [Tums] 200 mg calcium (500 mg) Tablet,Chewable 200 mg PO BID PRN (Reason: Acid Reflux) RF: 0 acetaminophen 500 mg Capsule 500 mg PO Q6H PRN (Reason: Pain) RF: 0 Lantus U-100 Insulin 100 unit/mL Solution 42 unit SUBCUT HS RF: 0 Discharge Orders: Discharge Order (Routine); Ordered 01/05/21 Ordered By: Alan Benavides/Other Patient Handouts: Managing Type 2 Diabetes, Managing Diabetes: The A1C Test Admission Data Admit Date/Time: 01/02/21 11:39 Attending Provider: Alan Murillo Admit Provider: Alan Murillo Primary Care Provider: Jose A Ortiz Other Providers: Parish Hooks Other Interventions: Discharge Summary Assessment (RN) Last Done: 01/05/21 08:54
--- NOTE | 2021-01-05 18:08 | Communication Note ---
Date of Service: January 05, 2021 Patient got discharged prior to my follow up visit today.
== END 2021-01-05 11:14 | disposition home or self-care (01) | DRG 454 ==
LOC: ASU 08:04 → 3E 11:39
DX: D62 Acute posthemorrhagic anemia; Z95.5 Presence of coronary angioplasty implant and graft; Z83.3 Family history of diabetes mellitus; E83.39 Other disorders of phosphorus metabolism; E11.40 Type 2 diabetes mellitus with diabetic neuropathy, unspecified; Z98.1 Arthrodesis status; I25.10 Atherosclerotic heart disease of native coronary artery without angina pectoris; E03.9 Hypothyroidism, unspecified; R42 Dizziness and giddiness; M48.062 Spinal stenosis, lumbar region with neurogenic claudication; Z79.01 Long term (current) use of anticoagulants; Z79.4 Long term (current) use of insulin